=== PATIENT | female | born 1955 | race Caucasian/White ===

== ENCOUNTER → 2016-11-03 | Outpatient (CLI) | payer BC ==
[~2016-11-03] MED LIST: BUPR-83 PO; CHOL400C10; CYAN500T PO; FOLI1TAB7 PO; LUTE15CA; MULT-506 PO; PRED20TA PO; TRAM-10 PO
[2016-11-03 16:17] LABS: BASO % 0.3 %; BASO ABS # 0.03 K/uL (0-0.2); COMPLETE YES; EOS % 2.3 %; HEMATOCRIT 32.2 % (37-47); IG% 0.2 %; LYMPH % 11.9 %; LYMPH ABS # 1.32 K/uL (1.2-3.4); MEAN CELL VOLUME 85.6 fL (80-100); MEAN CORPUSCULAR HEMOGLOBIN 27.9 pg (25-34); MEAN CORPUSCULAR HGB CONC 32.6 g/dl (32-36); MEAN PLATELET VOLUME 9.2 fL (7.4-10.4); MONO % 6.8 %; NEUT % 78.5 %; PLATELET COUNT 481 K/uL (130-400); RED BLOOD COUNT 3.76 M/uL (4.2-5.4); WHITE BLOOD COUNT 11.12 K/uL (4.8-10.8)
[2016-11-03 17:07] LABS: BLOOD UREA NITROGEN 12 mg/dl (7-18); BUN/CREATININE RATIO 16.2 (10-20); CALCIUM 9.6 mg/dl (8.5-10.1); CARBON DIOXIDE 26 mmol/L (21-32); CHLORIDE 106 mmol/L (98-107); CREATININE 0.74 mg/dl (0.60-1.20); GLUCOSE 92 mg/dl (70-99); POTASSIUM 3.7 mmol/L (3.5-5.1); SODIUM 141 mmol/L (136-145)
== END | disposition home or self-care (01) ==
LOC: C.LAB 15:00
PROVIDERS: ATTEND Surgery
DX: C34.90 Malignant neoplasm of unspecified part of unspecified bronchus or lung (principal)

== ENCOUNTER → 2016-11-13 | Outpatient (CLI) | payer BC ==
[~2016-11-13] MED LIST changes: +OPTIRAY 320 IV PRN
--- NOTE | 2016-11-13 09:10 | DIAGNOSTIC IMAGING REPORT ---
CT OF THE CHEST WITH IV CONTRAST CLINICAL HISTORY: Pleural effusion. Bilateral lung masses. COMPARISON STUDY: Outside chest x-ray dated 10/30/2016 TECHNIQUE: Following the IV administration of 94 mL of Optiray-320, CT of the thorax was performed from the thoracic inlet to the lung bases. Images are reviewed in the axial, sagittal, and coronal planes. IV contrast was administered without complication. CT DOSE: 248.37 mGy.cm FINDINGS: Thyroid: Imaged portions of the thyroid gland are normal in appearance. Thoracic aorta: The thoracic aorta is normal in course and caliber, noting standard 3-vessel arch anatomy. No aneurysm or dissection is seen. Pulmonary vasculature: The pulmonary trunk is normal in caliber. There are no central filling defects identified to suggest pulmonary embolus. Note that this examination was not protocoled for the evaluation of pulmonary emboli. HEART: The heart is normal in size and configuration, without pericardial effusion. Lungs and pleural spaces: There are multiple low density bilateral pulmonary nodules. These number in excess of 20. The largest on the left is located within the left lower lobe measuring 34 mm. The largest on the right is a right lower lobe nodule measuring 12.6 cm. There is also a lobulated right upper lobe point nodule measuring 54 mm. There is a small right pleural effusion. Mediastinum: There are pathologically enlarged mediastinal lymph nodes including a 25 mm right paratracheal lymph node, and 31 mm subcarinal lymph node. There is also an enlarged right subclavicular lymph node. Irena: There is pathologic right hilar lymphadenopathy with encasement of the right pulmonary artery Axilla: Clear. Upper abdomen: Partially visualized upper abdominal viscera is within normal limits. Skeletal structures: There are no lytic or blastic osseous lesions. IMPRESSION: 1. Multiple bilateral low-density pulmonary masses including a 12.6 cm right lower lobe mass 2. Pathologic mediastinal and hilar lymphadenopathy, which is again low density 3. Right-sided pleural-based masses suspicious for pleural metastasis. 4. Small right pleural effusion 5. Enlarged right subclavicular lymph node 6. The findings should be presumed to represent metastatic disease until proven otherwise. The low density of the lesions and adenopathy is unusual and raises the possibility of a mucinous neoplasm 7. Biopsy is recommended. Electronically signed by: Shahbaz You M.D. 11/13/2016 9:08 AM Dictated Date/Time: 11/13/2016 8:54 AM
== END | disposition home or self-care (01) ==
LOC: C.CTS 08:28
PROVIDERS: ATTEND Surgery
DX: J90 Pleural effusion, not elsewhere classified (principal); R91.8 Other nonspecific abnormal finding of lung field; R91.1 Solitary pulmonary nodule; R59.1 Generalized enlarged lymph nodes

== ENCOUNTER → 2016-11-19 | Outpatient (CLI) | payer BC ==
[~2016-11-19] MED LIST changes: -OPTIRAY 320 IV PRN
--- NOTE | 2016-11-20 20:06 | DIAGNOSTIC IMAGING REPORT ---
PET/CT CLINICAL HISTORY: Pulmonary masses. Right pleural effusion. TECHNIQUE: A PET/CT was performed from the skull base through the upper thighs following intravenous injection of 10.77 mCi of F 18 FDG IV. The injection was performed at 11:57 AM on November 19, 2016 and imaging began at 1:37 PM on November 19, 2016. Unenhanced CT was performed for attenuation correction purposes and anatomic localization. COMPARISON STUDY: Chest CT November 13, 2016. FINDINGS: Head and neck: Visualized portions of the brain demonstrate an equivocal 2.8 cm mass within or adjacent to the left cerebellopontine angle. This is probably artifactual. A nonenlarged right level 2 node shown image 23 measures 7 mm in short axis diameter and has mild FDG uptake with an SUV max of 2.8. An enlarged right supraclavicular lymph node shown on image 45 measures 2.1 x 1.4 cm and has mild FDG uptake with an SUV max of 2.5. Chest: A large hypodense right lower lobe mass measures approximately 12.6 x 8.2 cm. This has mild FDG uptake with an SUV max of 4. There is a small right pleural effusion with numerous FDG avid right pleural nodules. A 6.1 cm hypodense lobulated right upper lobe mass has mild FDG uptake with an SUV max of 3. A right paratracheal lymph node shown on image 63 measures 2.6 x 2.1 cm and has mild FDG uptake with an SUV max of 2.7. A 3.7 x 2.8 cm subcarinal lymph node has minimal FDG uptake. There are innumerable nodules throughout both lungs, including a 3.4 cm left lower lobe nodule with minimal FDG uptake. Similar findings were shown on CT of November 13, 2016. Abdomen and Pelvis: No abnormal FDG uptake is identified within the abdomen or the pelvis. There is no abdominal or pelvic lymphadenopathy. There is no ascites. Musculoskeletal: No suspicious skeletal uptake is identified. Uptake adjacent to the right shoulder is likely degenerative. IMPRESSION: 1. Mild FDG uptake within the dominant right lower lobe mass, innumerable pulmonary masses/nodules and enlarged thoracic lymph nodes. The findings suggest a neoplastic process with extensive pleural, parenchymal and cynthia metastatic disease. Although the appearance is not typical for bronchogenic carcinoma, this is the diagnosis of exclusion. 2. Small right pleural effusion, likely malignant. 3. Equivocal 2.8 cm lesion within the left cerebellopontine angle. This is probably artifactual although a nonemergent MRI of the brain with and without contrast could be obtained. Electronically signed by: Martinez Beltran M.D. 11/20/2016 8:05 PM Dictated Date/Time: 11/19/2016 2:42 PM
== END | disposition home or self-care (01) ==
LOC: C.PET 10:39
PROVIDERS: ATTEND Surgery
DX: R91.1 Solitary pulmonary nodule (principal); R91.8 Other nonspecific abnormal finding of lung field; J90 Pleural effusion, not elsewhere classified; G93.9 Disorder of brain, unspecified

== ENCOUNTER → 2016-11-27 | Outpatient (CLI) | payer BC ==
[2016-11-27 12:16] LABS: PLATELET COUNT 502 K/uL (130-400)
[2016-11-27 12:25] LABS: PARTIAL THROMBOPLASTIN RATIO 1.2; PROTHROMBIN TIME (PATIENT) 11.2 SECONDS (9.0-12.0)
== END | disposition home or self-care (01) ==
LOC: C.LABBFT 10:21
PROVIDERS: ATTEND Surgery
DX: J90 Pleural effusion, not elsewhere classified (principal); R91.8 Other nonspecific abnormal finding of lung field

== ENCOUNTER 2016-12-02 08:25 | Day surgery (SDC) | payer BC ==
[2016-12-02] VITALS (9 sets, daily range): BP systolic 113–132; BP diastolic 35–66; PULSE 76–90; TEMP 36.7–37.5; O2SAT 92–94; Ht 158.8 cm; Wt 72.0 kg
[~2016-12-02] VITALS: Ht 158.8 cm; Wt 72.0 kg
[2016-12-02] MEDS ORDERED: LUTE15CA (09:02)
[2016-12-02] MEDS ORDERED: CYAN500T PO (09:02)
[2016-12-02] MEDS ORDERED: BUPR-83 PO (09:02)
[2016-12-02] MEDS ORDERED: FOLI1TAB7 PO (09:02)
[2016-12-02] MEDS ORDERED: MULT-506 PO (09:02)
[2016-12-02] MEDS ORDERED: CHOL400C10 (09:02)
[2016-12-02] MEDS ORDERED: ACETAMINOPHEN 500 MG TAB PO PRN (11:00)
--- NOTE | 2016-12-02 11:00 | Discharge Instructions ---
Discharge Instructions Procedure Procedure Date: December 02, 2016. Reason for visit: Multiple Lung Masses. Discharge Discharge Date: December 02, 2016. Discharge Diagnosis: Lung mass Instructions Activity Recommendations: 1 Day-May resume regular activity, 48 Hours of decreased exertion, 1 Day with no driving/machine use Return to School/Work: no limitations Recommended Home Diet: Resume Previous Diet Provider Instructions: CT lung biopsy CT guided needle biopsy Performed of [Right upper lung] lesion with [ 20 and 22 gauge needle. Allergies Uncoded Allergies: ERTHROMYCIN (Allergy, Mild, nausea vomiting, 12/02/16) Issa Magana Recommendations: Call your doctor if: * Temperature above 101 degrees * Pain not relieved by pain medicine ordered * There is increased drainage or redness from any incision * You have any unanswered questions or concerns. Your Doctors Instructions noted above were prepared by provider David Cha. Patient Signature Section: Patient Instructions Signature Page Lilibeth Florescarolinakyle Patient (or Guardian) Signature/Date: I have read and understand the instructions given to me by my caregivers. Caregiver/RN/Doctor Signature/Date: The above-named patient and/or guardian has received patient instructions on this date. + Original Patient Signature Page (only) stays with chart. Please make copy for patient.
--- NOTE | 2016-12-02 11:08 | DIAGNOSTIC IMAGING REPORT ---
CT guided lung biopsy GUIDANCE NEEDLE PLACEMENT CLINICAL HISTORY: lung node mass TECHNIQUE: CT-guided lung biopsy COMPARISON STUDY: PET/CT scan dated 11/19/2016 FINDINGS: Following description of procedure and informed consent, passes with 20 and 22-gauge cutting needles were made to the pleural-based mass in the right upper lung. Initial interpretation from pathology was mucin without significant cellularity. A core biopsy was not felt to have a significant chance of adding to the information obtained. There are no complications. There is no pneumothorax.: IMPRESSION: Biopsy of the right upper lobe mass x2. No complications. Patient was transferred to observation . No significant cellularity was obtained on the initial slides. Mucin material was obtained exclusively. Electronically signed by: David Cha M.D. 12/02/2016 11:07 AM Dictated Date/Time: 12/02/2016 11:03 AM
== END 2016-12-02 14:10 | disposition home or self-care (01) ==
LOC: C.ACU 08:25
PROVIDERS: ATTEND Surgery
DX: R91.1 Solitary pulmonary nodule (principal); R59.9 Enlarged lymph nodes, unspecified; E78.5 Hyperlipidemia, unspecified; E78.1 Pure hyperglyceridemia; F32.9 Major depressive disorder, single episode, unspecified; M19.90 Unspecified osteoarthritis, unspecified site; Z87.891 Personal history of nicotine dependence; Z82.49 Family history of ischemic heart disease and other diseases of the circulatory system

== ENCOUNTER → 2016-12-10 | Outpatient (CLI) | payer BC | END | disposition home or self-care (01) | LOC: C.CPL 16:09 | PROVIDERS: ATTEND Surgery | DX: R91.1 Solitary pulmonary nodule (principal); J90 Pleural effusion, not elsewhere classified; R94.31 Abnormal electrocardiogram [ECG] [EKG] ==

== ENCOUNTER 2016-12-11 11:01 | Day surgery (SDC) | payer BC ==
[~2016-12-11] VITALS: Ht 157.5 cm; Wt 72.7 kg
[~2016-12-11 11:01] MED LIST changes: -PRED20TA PO; -TRAM-10 PO
[2016-12-11] MEDS ORDERED: PRED20TA PO (11:20)
[2016-12-11 11:22] VITALS: BP 134/66; PULSE 87; TEMP 36.7; O2SAT 94; Ht 157.5 cm; Wt 72.7 kg
[2016-12-11] MEDS ORDERED: LACTATED RINGER'S 1000ML 1,000 ML IV SCH (12:30)
[2016-12-11] MEDS ORDERED: FENTANYL CITRATE INJ 50 MCG/1 ML 2 ML VIAL ONE ×2 (12:57→13:57)
[2016-12-11] MEDS ORDERED: MIDAZOLAM HCL 1 MG/ML 2ML VIAL ONE (12:57)
--- NOTE | 2016-12-11 13:07 | History & Physical Bridge Note ---
H&P Re-Evaluation Bridge Note: I have examined the patient, reviewed the History & Physical and in the interval since the performance of the History & Physical I have noted the following changes of clinical significance: No changes noted
[2016-12-11] MEDS ORDERED: KETOROLAC TROMETHAMINE 30 MG/ML VIAL IV. PRN (13:30)
[2016-12-11] MEDS ORDERED: ATROPINE SULFATE 0.1 MG/ML 5ML SYR IV PRN (13:30)
[2016-12-11] MEDS ORDERED: LABETALOL HCL IV 5 MG/ML 20ML IV PRN (13:30)
[2016-12-11] MEDS ORDERED: FENTANYL CITRATE INJ 50 MCG/1 ML 2 ML VIAL IV PRN (13:30)
[2016-12-11] MEDS ORDERED: ONDANSETRON INJ 2 MG/ML 2 ML VIAL IV PRN (13:30)
[2016-12-11] MEDS ORDERED: TRAM-10 PO (13:37)
--- NOTE | 2016-12-11 13:39 | Discharge Instructions ---
Discharge Instructions Date of Service Dec 11, 2016. Visit Reason for Visit: Lung Nodule, Pleural Effusion Discharge Discharge Diagnosis / Problem: Lung Nodule, Pleural Effusion Discharge Goals Goal(s): Learn about illness Activity Recommendations Activity Limitations: resume your previous activity (in 24 hours) Lifting Limitations: none 1. Do not drive if taking ultram. 2. Keep your scheduled appointment with Dr. Mcgovern on December 18, 2016 @ 9:45 Anesthesia . Post Anesthesia Instructions: If you have had General Anesthesia or IV Sedation: * Do not drive today. * Resume driving when surgeon permits. * Do not make important decisions or sign legal documents today. * Call surgeon for: 1. Temperature elevations greater than 101 degrees F. 2. Uncontrollable pain. 3. Excessive bleeding. 4. Persistent nausea and vomiting. 5. Medication intolerance (nausea, vomiting or rash). * For nausea and vomiting use only clear liquids such as: tea, soda, bouillon until nausea subsides, then gradually increase diet as tolerated. * If you have any concerns or questions, call your surgeon's office. If physician is unavailable and it is an emergency, call 911 or go to the nearest emergency room. . Diet Recommendations Recommended Home Diet: resume previous diet Pending Studies Studies pending at discharge: no Medical Emergencies . Who to Call and When: Medical Emergencies: If at any time you feel your situation is an emergency, please call 911 immediately. . Non-Emergent Contact Non-Emergency issues call your: Surgeon Call Non-Emergent contact if: you have a fever, your pain is not controlled, wound has increased drainage . . "Provider Documentation" section prepared by Mo Gunderson. .
[2016-12-11] MEDS ORDERED: DEXAMETHASONE SOD INJ 4 MG/ML VIAL ONE (14:08)
[2016-12-11] MEDS ORDERED: ROCURONIUM BROMID 50MG/5ML SYR ONE (14:08)
[2016-12-11] MEDS ORDERED: LARYING-O-JET KIT (LTA) ONE ×2 (14:08)
[2016-12-11] MEDS ORDERED: NEOSTIGMINE METHYLSULFATE 5 MG/5 ML SYR ONE (14:08)
[2016-12-11] MEDS ORDERED: PROPOFOL IV EMULSION 10 MG/ML 20 ML VIAL IV ONE (14:08)
[2016-12-11] MEDS ORDERED: ONDANSETRON INJ 2 MG/ML 2 ML VIAL ONE (14:08)
[2016-12-11] MEDS ORDERED: GLYCOPYRROLATE INJ 0.2 MG/ML VIAL ONE (14:08)
[2016-12-11] MEDS ORDERED: LIDOCAINE HCL 2% 2 ML VIAL (20MG/ML) ONE (14:08)
[2016-12-11] MEDS ORDERED: TRAMADOL HCL 50 MG TAB PO PRN (14:30)
[2016-12-11] MEDS ORDERED: MoRPHine SULFATE 2 MG/ML CARP IV PRN (14:30)
[2016-12-11] MEDS ORDERED: CEFAZOLIN SOD 1 GM VIAL ONE (14:40)
--- NOTE | 2016-12-11 14:55 | DIAGNOSTIC IMAGING REPORT ---
SINGLE VIEW CHEST CLINICAL HISTORY: Status post mediastinoscopy. FINDINGS: An AP, portable, upright chest radiograph is compared to study dated 10/30/2016 and correlated with chest CT dated 11/13/2016. The heart is top normal for projection and there is atherosclerotic calcification of the thoracic aorta. The there is a right pleural effusion with associated right basilar consolidation. Multifocal pulmonary nodules are again seen. A mass lesion in the right upper lobe measures at least 6 cm. A lesion in the left lower lung measures at least 4 cm. These were better characterized on the recent chest CT. No pneumothorax is seen. The skeletal structures are osteopenic. Degenerative change is noted throughout the thoracic spine. IMPRESSION: 1. No pneumothorax is identified post procedure. 2. Layering right pleural effusion with associated consolidation. 3. Multifocal pulmonary metastatic disease is again seen. This was better characterized on the recent chest CT. Electronically signed by: Bill Candelario M.D. 12/11/2016 2:53 PM Dictated Date/Time: 12/11/2016 2:51 PM
--- NOTE | 2016-12-11 15:24 | Anesthesiology Progress Note ---
Anesthesia Post Op Note Date & Time Dec 11, 2016 at 15:23 Vital Signs Pain Intensity: 0 Vital Signs Past 12 Hours Date Time Temp Pulse Resp B/P (MAP) Pulse Ox O2 Delivery O2 Flow Rate FiO2 12/11/16 15:10 87 16 124/48 95 Room Air 12/11/16 15:00 87 16 138/59 94 Room Air 12/11/16 14:50 97 16 148/63 97 Mask 10 12/11/16 14:43 36.6 96 16 134/88 96 Mask 10 12/11/16 11:22 36.7 87 22 134/66 (88) 94 Room Air Notes Mental Status: alert / awake / arousable, participated in evaluation Pt Amnestic to Procedure: Yes Nausea / Vomiting: adequately controlled Pain: adequately controlled Airway Patency, RR, SpO2: stable & adequate BP & HR: stable & adequate Hydration State: stable & adequate Anesthetic Complications: no major complications apparent Pt doing well.
[2016-12-11 15:38] VITALS: BP 123/60; PULSE 84; TEMP 36.7; O2SAT 95
[2016-12-11 16:05] VITALS: BP 126/63; PULSE 86; TEMP 36.3; O2SAT 96
[2016-12-11 16:40] VITALS: BP 128/60; PULSE 91; TEMP 36.3; O2SAT 96
--- NOTE | 2016-12-16 21:57 | OPERATIVE REPORT ---
DATE OF OPERATION: 12/11/2016 PREOPERATIVE DIAGNOSIS: Large bilateral lung masses with mediastinal adenopathy. 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 SURGEON: Dr. Mcgovern. PITCH FILLER: RAYMOND Abreu PROCEDURE: Video mediastinoscopy with biopsy. ANESTHESIA: General anesthesia endotracheal intubation. INDICATION FOR PROCEDURE AND FINDINGS: Lilibeth Davis is a 61-year-old female who was found to have some very large lung masses. She does have a history of cigarette smoking. She and I had a long discussion about this and I did set her up for a needle biopsy, however, this just showed a great deal of mucin and there was not really a pathologic diagnosis that can be made. On 12/11/2016 I took her to the operating room and did a video mediastinoscopy and the frozen section suggest a mucinous adenocarcinoma. She tolerated it well. DESCRIPTION OF PROCEDURE: The patient brought to the operating room, laid in supine position. General anesthesia was induced and endotracheal intubation was performed. Prepped and draped in the usual sterile fashion, and calling appropriate timeout and giving antibiotics, an incision was made 1 fingerbreadth above the sternal notch. Sharp and blunt dissection used to dissect down to the pretracheal plane which was developed. I bluntly placed my finger in and then I was able to palpate significant lymphadenopathy at the level 2 area. I biopsied a large amount of this and then went down to the level 4 area and biopsied this on the right side. I gave them a very large amount of tissue. Frozen section came back as being consistent with a mucinous adenocarcinoma. I did not biopsy anything else. I did place one small piece of Surgicel in to control some oozing. She tolerated it well. It should be noted that I was not very aggressive in biopsying anything else as I felt we had enough tissue for diagnosis. I attest to the content of the Intraoperative Record and any orders documented therein. Any exception s are noted below.
== END 2016-12-11 17:00 | disposition home or self-care (01) ==
LOC: C.ACU 11:01
PROVIDERS: ATTEND Surgery
DX: C80.1 Malignant (primary) neoplasm, unspecified (principal); C77.1 Secondary and unspecified malignant neoplasm of intrathoracic lymph nodes; R91.1 Solitary pulmonary nodule; J90 Pleural effusion, not elsewhere classified; E78.5 Hyperlipidemia, unspecified; E78.1 Pure hyperglyceridemia; F32.9 Major depressive disorder, single episode, unspecified; M19.90 Unspecified osteoarthritis, unspecified site; Z87.891 Personal history of nicotine dependence; Z79.899 Other long term (current) drug therapy

== ENCOUNTER → 2017-01-05 | Outpatient (CLI) | payer BC ==
[~2017-01-05] MED LIST changes: +GADAVIST IV PRN; +PRED20TA PO; +TRAM-10 PO
--- NOTE | 2017-01-05 15:07 | DIAGNOSTIC IMAGING REPORT ---
MRI OF THE BRAIN COMBO CLINICAL HISTORY: Lung cancer. COMPARISON STUDY: PET/CT dated 11/19/2016. TECHNIQUE: MRI of the brain was performed utilizing various T1 and T2-weighted sequences in the axial, sagittal, and coronal planes. Contrast-enhanced sequences were acquired following the administration of 6.5 cc of Gadavist. Examination is severely degraded by open MRI technique and motion artifact. FINDINGS: Brain parenchyma: There are age-related involutional changes noting mild patchy subcortical and periventricular microangiopathic disease. There is no hemorrhage or mass effect. There is no restricted diffusion to suggest acute ischemia. No enhancing mass lesion is identified on the postcontrast images. Hassan-white matter differentiation is preserved. No extra-axial fluid collection is seen. The cerebellar tonsils are normal in configuration. Ventricles, sulci, and cisterns: Prominent secondary to involutional change. Pituitary and sella: Unremarkable. Intracranial vasculature: Normal flow voids are maintained at the skull base. Orbits: The bony orbits are grossly intact. Orbital contents are normal in appearance. Sinuses and mastoids: Clear. Calvarium: Unremarkable. Cervical cord: Partially visualized cervical spinal cord is normal in morphology and signal intensity. IMPRESSION: 1. Significantly motion degraded examination. 2. No acute intracranial abnormality. 3. Specifically, there is no abnormality identified at the left cerebellopontine angle as clinically queried. The abnormality questioned by PET/CT was likely artifactual. Electronically signed by: Bill Candelario M.D. 01/05/2017 3:05 PM Dictated Date/Time: 01/05/2017 3:01 PM
--- NOTE | 2017-01-08 09:32 | CODING QUERY NO DIAGNOSIS ---
TREATMENT RENDERED WITHOUT A DIAGNOSIS To promote full compliance with coding requirements relating to patient care, physician participation is requested in all cases of medical record coder uncertainty. Please assist us with providing a diagnosis/symptom for the test(s) below: A diagnosis/symptom was not documented on your Order. A valid diagnosis/symptom is required to bill all insurances. Please remember that we are unable to code a diagnosis of rule out, probable, possible, questionable, or suspected. Tests that require a diagnosis: * MRI BRAIN COMBO DIAGNOSIS: Provider Signature: Date: Thank you Kylie [place] [employer] Information Management Once completed, please kindly fax back to [phone] For questions please call [phone]
== END | disposition home or self-care (01) ==
LOC: C.OPENMRI 13:25
PROVIDERS: ATTEND Internal Medicine Hematology & Oncology
DX: C34.92 Malignant neoplasm of unspecified part of left bronchus or lung (principal)

== ENCOUNTER → 2017-02-05 | Outpatient (CLI) | payer BC ==
[~2017-02-05] MED LIST changes: -GADAVIST IV PRN
--- NOTE | 2017-02-27 10:29 | CODING QUERY NO DIAGNOSIS ---
TREATMENT RENDERED WITHOUT A DIAGNOSIS To promote full compliance with coding requirements relating to patient care, physician participation is requested in all cases of operations advisor uncertainty. Please assist us with providing a diagnosis/symptom for the test(s) below: A diagnosis/symptom was not documented on your Order. A valid diagnosis/symptom is required to bill all insurances. Please remember that we are unable to code a diagnosis of rule out, probable, possible, questionable, or suspected. Tests that require a diagnosis: * NUTRITION & CULINARY SERVICES DIAGNOSIS: Provider Signature: Date: Thank you Kylie [place] [employer] Information Management Once completed, please kindly fax back to [phone] For questions please call [phone]
== END | disposition home or self-care (01) ==
LOC: C.FOODA 11:29
PROVIDERS: ATTEND Internal Medicine Hematology & Oncology
DX: C34.90 Malignant neoplasm of unspecified part of unspecified bronchus or lung (principal)

== ENCOUNTER → 2017-02-25 | Outpatient (CLI) | payer BC ==
[~2017-02-25] MED LIST changes: +OPTIRAY 320 IV PRN
--- NOTE | 2017-02-25 14:31 | DIAGNOSTIC IMAGING REPORT ---
(CHEST) THORAX WITH CT DOSE: HISTORY: Lung carcinoma LUNG CA TECHNIQUE: Multiaxial CT images of the chest were performed following the intravenous administration of contrast. A dose lowering technique was utilized adhering to the principles of ALARA. COMPARISON: 11/13/2016 FINDINGS: Opacification of the right hemithorax. Progressive low-density lesions occupying the bulk of the right hemithorax is likely combined with a small right effusion. Progressive mediastinal and hilar adenopathy. Compromise of the lumens of the arterial pulmonary vasculature involving the right upper and right lower lobe regions. Progressive parenchymal nodularity both in size as well as number of the left hemithorax metastatic findings. Pleural-based nodule transaxial image 17 has increased in volume by 50%. Multiple additional small nodular densities are present. Increase in volume of a pleural-based left lower lobe nodule transaxial images 13 to 3.6 cm Prior dimensions are 3.0 cm. This study is remarkable for rapid progression of the patient's diffuse metastatic disease. The osseous structures remain intact. IMPRESSION: 1. Interval opacification right hemithorax. 2. Progressive metastatic nodularity left hemithorax. 3. Progressive mediastinal and hilar adenopathy. The above report was generated using voice recognition software. It may contain grammatical, syntax or spelling errors. Electronically signed by: David Cha M.D. 02/25/2017 2:30 PM Dictated Date/Time: 02/25/2017 2:24 PM
--- NOTE | 2017-02-25 14:39 | DIAGNOSTIC IMAGING REPORT ---
ABD/PELVIS IV AND ORAL CONT CLINICAL HISTORY: 61 years-old Female presenting with LUNG CA, follow-up right lung mass, currently on chemotherapy. TECHNIQUE: Multidetector CT of the abdomen and pelvis was performed after the administration of oral and intravenous contrast. IV contrast: 119 mL of Optiray 320. A dose lowering technique was used consistent with the principles of ALARA (as low as reasonably achievable). COMPARISON: PET/CT from 11/19/2016. CT DOSE (mGy.cm): The estimated cumulative dose is 515.45 mGy.cm. FINDINGS: Desktop Support Specialist topogram: Complete opacification of the right hemithorax. Lung bases: Large right lung mass with no residual aerated right lung visible at the lung base. Multiple new and enlarging nodules and masses in the left lung, the largest measuring 3.8 cm, previously 3.4 cm. Liver: The right lower lobe mass may directly invade the right hemidiaphragm and involve the subcapsular liver parenchyma, although no discrete intraparenchymal lesion is noted within the liver. Patent hepatic vasculature. Biliary: No intrahepatic or extrahepatic biliary ductal dilatation. Normal gallbladder. Pancreas: Normal. Spleen: Normal. Adrenal glands: Normal. Kidneys and ureters: No nephrolithiasis. No hydronephrosis. Subcentimeter hypodensity posteriorly in the right lower pole, likely a cyst. Ureters normal. Bladder: Normal. Pelvic organs: Uterus and ovaries normal. Bowel: Limited diverticulosis of the descending and sigmoid colon. No bowel obstruction. Peritoneal cavity: No free fluid or intraperitoneal gas. Vasculature: Atherosclerosis of the normal caliber abdominal aorta. IVC patent. Lymph nodes: No enlarged lymph nodes in the abdomen or pelvis. Abdominal wall: Normal. Musculoskeletal: Degenerative changes of the spine. No destructive osseous lesion. IMPRESSION: 1. The right lung primary mass may directly invade the right hemidiaphragm and involve the subcapsular liver parenchyma, although no discrete intraparenchymal lesion is noted within the liver. No other evidence of metastatic disease in the abdomen or pelvis. 2. Enlarging left lung metastatic lesions. Primary right lung mass may also be enlarging. Please separately dictated CT of the chest. Electronically signed by: Candido Welsh M.D. 02/25/2017 2:38 PM Dictated Date/Time: 02/25/2017 2:29 PM
== END | disposition home or self-care (01) ==
LOC: C.CTS 13:23
PROVIDERS: ATTEND Internal Medicine Hematology & Oncology
DX: C34.31 Malignant neoplasm of lower lobe, right bronchus or lung (principal)

== ENCOUNTER → 2017-04-15 | Outpatient (CLI) | payer BC ==
--- NOTE | 2017-04-15 11:33 | DIAGNOSTIC IMAGING REPORT ---
(CHEST) THORAX WITH CLINICAL HISTORY: 61 years-old Female presenting with LUNG CARCINOMA. TECHNIQUE: Multidetector CT imaging of the chest was performed after the administration of intravenous contrast. IV contrast: 94 mL of Optiray 320. A dose lowering technique was used consistent with the principles of ALARA (as low as reasonably achievable). COMPARISON: 02/25/2017. CT DOSE (mGy.cm): The estimated cumulative dose is 843.43 mGycm. FINDINGS: Chronic Care Nurse topogram: Partial aeration of the right lung. On soft tissue windows, hypodense nodule in the left thyroid lobe, unchanged. Pathologically enlarged mediastinal lymphadenopathy. An index node in the prevascular region measures 9 mm in the short axis, previously 10 mm. A right paratracheal lymph node measures 11 mm in the short axis, previously 11 mm. Normal aorta. Stenosis of the right pulmonary artery branches as on prior exam. Vessels remain patent. Normal heart size. No pericardial effusion. Loculated right pleural effusion unchanged. Extensive nodular pleural thickening in the right hemithorax, which may invade the right anterior mediastinum.. Upper abdomen normal. On lung windows, innumerable pulmonary nodules bilaterally. An index nodule in the left apex measures 10 mm, previously 10 mm (series 4 image 50). A larger left lower lobe nodule measures 3.9 cm, previously 3.8 cm (series 4 image 160). Improved aeration of the right upper lung. Multiple large masses in the right lung with extensive consolidation similar to prior. Consolidation involves the right hilum. Complete obstruction of the bronchus intermedius and the more distal right upper lobe bronchus. Airways to the left lung remain patent. On bone windows, mild degenerative changes of the spine. No paraspinal soft tissue invasion is apparent. No destructive osseous lesion. IMPRESSION: 1. Persistent diffuse consolidation in the right lung, consistent with known primary lung carcinoma. Persistent innumerable metastatic pulmonary nodules, metastatic pleural disease, invasion of the mediastinum, and metastatic mediastinal lymphadenopathy. Invasion of the right hilum with resultant bronchial and arterial narrowing as on prior exam. The degree of disease extent is essentially unchanged from prior. 2. Slight improved aeration of the right upper lung. Electronically signed by: Candido Welsh M.D. 04/15/2017 11:32 AM Dictated Date/Time: 04/15/2017 11:21 AM
--- NOTE | 2017-04-15 13:10 | DIAGNOSTIC IMAGING REPORT ---
CT OF THE ABDOMEN AND PELVIS WITH CONTRAST CLINICAL HISTORY: Lung carcinoma. COMPARISON STUDY: PET/CT November 19, [address] of the abdomen and pelvis February 25, 2017. TECHNIQUE: Following IV administration of 94 mL of Optiray-320, axial images of the abdomen and pelvis were obtained from the lung bases to the proximal femurs. Images were reviewed in the axial, sagittal, and coronal planes. IV contrast was administered without complication. A dose lowering technique was utilized adhering to the principles of ALARA. Oral contrast was administered. FINDINGS: The chest will be reported separately. The large hypodense dense right lung mass is partially imaged on this exam and better depicted on the chest CT. Innumerable left lung metastases are again noted. These are better depicted on the chest CT as well. The liver, spleen, adrenal glands, kidneys and pancreas are unremarkable Global. There is an 8 mm right renal cyst. There is no biliary or pancreatic ductal dilatation. No enlarged abdominal or pelvic lymph nodes are present. There is no ascites. There is no evidence for a bowel obstruction. No hydronephrosis is present. No suspicious osseous lesions are identified. IMPRESSION: 1. No evidence of metastatic disease within the abdomen or pelvis. 2. Partially visualized large hypodense right lung mass and innumerable left lung metastases which are better depicted on the chest CT performed concurrently. Electronically signed by: Martinez Beltran M.D. 04/15/2017 1:09 PM Dictated Date/Time: 04/15/2017 1:03 PM
== END | disposition home or self-care (01) ==
LOC: C.CTS 10:36
PROVIDERS: ATTEND Internal Medicine Hematology & Oncology
DX: C34.31 Malignant neoplasm of lower lobe, right bronchus or lung (principal)

== ENCOUNTER → 2017-05-20 | Outpatient (CLI) | payer BC ==
--- NOTE | 2017-05-20 16:21 | DIAGNOSTIC IMAGING REPORT ---
CT SCAN OF THE CHEST, ABDOMEN, AND PELVIS WITH IV CONTRAST CLINICAL HISTORY: Lung cancer. COMPARISON STUDY: CT scan of the chest, abdomen, and pelvis dated 04/15/2017. Chest CT dated 11/13/2016. TECHNIQUE: Following the IV administration of 120 of Optiray 320, CT scan of the chest, abdomen, and pelvis was performed from the thoracic inlet to the proximal femora. Images are reviewed in the axial, sagittal, and coronal planes. IV contrast was administered without complication. Automated dose control exposure was utilized. A dose lowering technique was utilized adhering to the principles of ALARA. CT DOSE: 655.88 mGy.cm FINDINGS: CHEST: Thyroid: Imaged portions of the thyroid gland are normal in size and attenuation. There is a 1.9 cm low-attenuation nodule in the left thyroid lobe. Thoracic aorta: There is mild atherosclerotic calcification of the thoracic aorta, which is normal in caliber and demonstrates standard 3-vessel arch anatomy. No dissection is seen. Pulmonary vasculature: The pulmonary trunk is normal in caliber. There are no filling defects identified in the central pulmonary vessels to indicate pulmonary embolus. Note that this examination was not protocoled for evaluation of the pulmonary arteries. There is significant attenuation of the distal right pulmonary artery secondary to hilar adenopathy. The vessels remain patent. Heart: The heart is normal in size and configuration, and without pericardial effusion. Lungs and pleural spaces: There is no airspace consolidation typical for pneumonia. A small pleural effusion is seen on the right. There has been no significant change in the appearance of a large low-attenuation mass lesion which fills the right lower thorax. This measures at least 16 x 9 cm in transaxial diameter. There are too numerous to count (greater than 30) metastatic lesions seen throughout both lungs. This is overall similar appearance to the 04/15/2017 examination. A large lesion in the right upper lobe seen on image #92 measures at least 6 cm. A lesion in the left lower lobe seen on image #167 measures 3.9 x 2.8 cm. Pleural metastases are also similar to previous. Lymphangitic spread of tumor is suggested in the right upper lobe. Mediastinum: There is bulky confluent mediastinal lymphadenopathy. This has not significant changed from 04/15/2017. A right paratracheal cynthia lesion on image #55 measures 3.6 x 2.9 cm Confluent subcarinal adenopathy completely occludes the right mainstem bronchus. Irena: There is bulky/confluent right hilar adenopathy. This cannot the discretely measured. Mildly enlarged left hilar nodes identified and similar appearance to previous. Axillae: There is no axillary lymphadenopathy. Bony thorax: The skeletal structures are osteopenic. No lytic or blastic lesions are identified. Advanced degenerative change is seen throughout the thoracic spine. Advanced arthritic change is also seen in the right shoulder. ABDOMEN AND PELVIS: Liver: The contrast-enhanced liver is normal in size, contour, and attenuation. There is no intrahepatic or ductal dilatation. The hepatic veins and portal veins are patent. Gallbladder: Unremarkable. Spleen: Normal in size and attenuation. Pancreas: Unremarkable. Adrenal glands: Unremarkable. Kidneys: The contrast enhanced kidneys are normal in size and without hydronephrosis. The kidneys enhance symmetrically. Abdominal vasculature: The abdominal aorta is normal in course and caliber noting mild to moderate atherosclerotic calcification. Bowel: There is mild colonic diverticulosis without CT evidence of acute diverticulitis. Colonic fecal retention is observed. No bowel obstruction is seen. The appendix is normal as visualized. Peritoneum: There is no intraperitoneal free air or abdominal ascites. Lymphadenopathy: None. Pelvic viscera: The bladder, uterus, and adnexa are normal as visualized. Skeletal structures: The skeletal structures are osteopenic. There is mild lumbosacral spondylosis and scoliosis. No lytic or blastic lesions are seen. IMPRESSION: 1. There has been no significant change from 04/15/2017. 2. A large mass lesion filling the right lower thorax, too numerous to count pulmonary and pleural-based metastatic lesions, as well as bulky mediastinal and hilar adenopathy are similar to previous. 3. There is a small right pleural effusion. 4. There is no evidence of metastatic disease in the abdomen or pelvis. 5. There is mild colonic diverticulosis without CT evidence of acute diverticulitis. Electronically signed by: Bill Candelario M.D. 05/20/2017 4:19 PM Dictated Date/Time: 05/20/2017 4:02 PM
== END | disposition home or self-care (01) ==
LOC: C.CTS 15:29
PROVIDERS: ATTEND Internal Medicine Hematology & Oncology
DX: C34.31 Malignant neoplasm of lower lobe, right bronchus or lung (principal); R22.2 Localized swelling, mass and lump, trunk; J90 Pleural effusion, not elsewhere classified; K57.30 Diverticulosis of large intestine without perforation or abscess without bleeding

== ENCOUNTER 2017-07-29 09:08 | Inpatient (IN) | payer BC ==
[2017-07-29] VITALS (22 sets, daily range): BP systolic 81–123; BP diastolic 58–91; PULSE 96–122; TEMP 36.8; O2SAT 90–94; Ht 160 cm; Wt 66.6 kg
[~2017-07-29] VITALS: Ht 160 cm; Wt 66.6 kg
[~2017-07-29 09:08] MED LIST changes: -FOLI1TAB7 PO; +FOLI1TAB8 PO; -OPTIRAY 320 IV PRN; -TRAM-10 PO
[2017-07-29] MEDS ORDERED: MAGNESIUM SULFATE 1GM / D5W 1 GM BAG IV STA (09:13)
[2017-07-29] MEDS ORDERED: FUROSEMIDE 40 MG/4 ML VIAL IV STA (09:13)
[2017-07-29] MEDS ORDERED: FUROSEMIDE 40 MG/4 ML VIAL ONE (09:14)
[2017-07-29] MEDS ORDERED: NITROGLYCERIN/D5W 100 MCG/ML 500 ML IV STA (09:16)
[2017-07-29] MEDS ORDERED: METHYLPREDNISOLONE 125 MG VIAL ONE (09:19)
[2017-07-29] MEDS ORDERED: ALBUT/IPRATROP 3MG/0.5MG NEB 3 ML VIAL ONE (09:19)
[2017-07-29] MEDS ORDERED: ALBUTEROL 0.083% NEBU SOLN 3 ML VIAL INH ONE (09:19)
--- NOTE | 2017-07-29 09:27 | DIAGNOSTIC IMAGING REPORT ---
CHEST ONE VIEW PORTABLE CLINICAL HISTORY: Respiratory symptoms. Lung cancer. COMPARISON STUDY: Chest CT May 20, 2017. FINDINGS: There is no pneumothorax. Innumerable bilateral pulmonary nodules are again noted, including a 6.7 cm right upper lobe mass and a dominant right lower lobe mass which is better depicted on prior CT. A small right pleural effusion is noted. Cardiomediastinal silhouette is stable with stable mediastinal widening and right hilar enlargement due to lymphadenopathy. Right lower lung aeration has likely improved since exam May 20, 2017. Left lung metastases have likely progressed. IMPRESSION: 1. Innumerable bilateral pulmonary nodules consistent with extensive metastatic disease, including a large right lower lobe mass and dominant right upper lobe mass. Suspected interval progression of left lung metastases with interval improvement in right lower lung aeration. 2. Small right pleural effusion. Electronically signed by: Martinez Beltran M.D. 07/29/2017 9:25 AM Dictated Date/Time: 07/29/2017 9:21 AM
[2017-07-29] MEDS ORDERED: ALBUT/IPRATROP 3MG/0.5MG NEB 3 ML VIAL INH ONE (09:30)
[2017-07-29] MEDS ORDERED: RAPID SEQUENCE INDUCTION BAG ONE (09:32)
[2017-07-29] MEDS ORDERED: SUCCINYLCHOLINE CHLORIDE 20 MG/ML 10 ML VIAL IV STA (09:33)
--- NOTE | 2017-07-29 09:34 | EMERGENCY ROOM VISIT NOTE ---
History Report prepared by Perla: Alec Freeman Under the Supervision of: Dr. Leopoldo Crowell M.D. First contact with patient: 09:07 Stated Complaint: RESPIRATORY History of Present Illness The patient is a 62 year old female who presents to the Emergency Room with complaints of respiratory problems that began a couple of weeks ago, but worsened significantly today. She a current medical history of lung cancer and receives chemotherapy treatments every third . Over the past couple of weeks, she has been exhibiting flu-like symptoms that include chest congestion, a productive cough with white sputum, and some mild shortness of breath. The cold weather has been exacerbating her symptoms. However, this morning her respiratory symptoms worsened significantly. When EMS arrived, the patient was 98% on her normal oxygen. En route, she received a DuoNeb with Albuterol and 125 mg of Solu-Medrol. She denies any known cardiac history. She denies any fevers, chest pain, nausea, vomiting, diarrhea, weakness, or numbness. Source of History: patient Onset: A couple of weeks ago Position: other (Respiratory System) Symptom Intensity: severe Quality: other (Respiratory Symptoms) Timing: worsening Associated Symptoms: + cough, + SOB, No fevers, No chills, No chest pain, No nausea, No vomiting, No diarrhea, No weakness, No numbness Note: She is experiencing chest congestion. Review of Systems See HPI for pertinent positives & negatives. A total of 10 systems reviewed and were otherwise negative. Past Medical & Surgical Medical Problems: (1) Depression (2) Primary mucinous adenocarcinoma of lung Family History Patient reports no known family medical history. Social History Smoking Status: Former Smoker Smokeless Tobacco Use: No Drug Use: none Marital Status: Occupation Status: employed Current/Historical Medications Scheduled Bupropion Hcl (Wellbutrin Sr), 1 TAB PO BID Cyanocobalamin (Vitamin B-12), 500 MCG PO DAILY Doxycycline Monohydrate (Monodox), 100 MG PO BID Escitalopram Oxalate (Lexapro), 20 MG PO DAILY Folic Acid (Folic Acid), 1 TAB PO DAILY Multivitamin (Multivitamin), 1 TAB PO DAILY Scheduled PRN Benzonatate (Tessalon Perles), 1 CAP PO TID PRN for Cough Dexamethasone (Decadron), 1 MG PO BID PRN for prior to chemo Ondansetron Hcl (Zofran), 8 MG PO Q8 PRN for Nausea Prochlorperazine Maleate (Compazine), 10 MG PO Q6H PRN for Nausea Allergies Coded Allergies: Erythromycin (Verified Adverse Reaction, Unknown, NAUSEA/VOMITING, 07/29/17 ) Physical Exam Vital Signs Date Time Temp Pulse Resp B/P (MAP) Pulse Ox O2 Delivery O2 Flow Rate FiO2 07/29/17 10:45 105 12 116/77 90 07/29/17 10:44 105 116/77 90 Mechanical Ventilator 60 07/29/17 10:35 90 Mechanical Ventilator 15.0 60 07/29/17 10:30 107 129/76 91 Mechanical Ventilator 60 07/29/17 10:07 107 18 125/77 97 Mechanical Ventilator 07/29/17 09:45 60 07/29/17 09:38 100 07/29/17 09:31 122 26 137/111 94 CPAP 07/29/17 09:23 122 30 111/85 95 BiPAP 40 07/29/17 09:21 Nasal Cannula 07/29/17 09:20 122 34 129/114 97 BiPAP 07/29/17 09:20 122 37 94 BiPAP/CPAP 40 07/29/17 09:15 122 94 40 07/29/17 09:15 121 07/29/17 09:10 94 Nasal Cannula 15.0 07/29/17 09:10 94 Nasal Cannula 15.0 07/29/17 09:10 36.7 122 36 116/92 95 Nasal Cannula 15.0 Physical Exam GENERAL: Patient is a pale appearing well-nourished female in acute distress. HEAD: Normocephalic atraumatic EYES: Ocular movements intact pupils equal and react to light OROPHARYNX mucous membranes are moist no exudates present no erythema or edema present NECK: Supple no nuchal rigidity CHEST: Good equal expansion LUNGS: Rales throughout all lung sounds. CARDIAC: Normal S1 and S2 ABDOMEN: Soft nontender no guarding BACK: No CVA tenderness EXTREMITIES: No pain upon palpation normal muscle strength in all groups no clubbing cyanosis or edema NEURO: Patient is following commands and answering questions appropriately. Alert and oriented x3 Cranial Nerves 2-12 grossly intact Medical Decision & Procedures ER Provider Diagnostic Interpretation: Radiology results as stated below per my review and radiologist interpretation: CHEST ONE VIEW PORTABLE CLINICAL HISTORY: Respiratory symptoms. Lung cancer. COMPARISON STUDY: Chest CT May 20, 2017. FINDINGS: There is no pneumothorax. Innumerable bilateral pulmonary nodules are again noted, including a 6.7 cm right upper lobe mass and a dominant right lower lobe mass which is better depicted on prior CT. A small right pleural effusion is noted. Cardiomediastinal silhouette is stable with stable mediastinal widening and right hilar enlargement due to lymphadenopathy. Right lower lung aeration has likely improved since exam May 20, 2017. Left lung metastases have likely progressed. IMPRESSION: 1. Innumerable bilateral pulmonary nodules consistent with extensive metastatic disease, including a large right lower lobe mass and dominant right upper lobe mass. Suspected interval progression of left lung metastases with interval improvement in right lower lung aeration. 2. Small right pleural effusion. Electronically signed by: Martinez Beltran M.D. 07/29/2017 9:25 AM Dictated Date/Time: 07/29/2017 9:[address] ANGIOGRAM OF THE CHEST CLINICAL HISTORY: Hypoxia. Respiratory failure. COMPARISON STUDY: Chest x-ray dated 07/29/2017, CT scan dated 05/20/2017 TECHNIQUE: Following the IV administration of 93 mL of Optiray-320, CT angiogram of the thorax was performed from the thoracic inlet to the lung bases utilizing the pulmonary embolus protocol. Images are reviewed in the axial, sagittal, and coronal planes. IV contrast was administered without complication. MIP imaging was performed. A dose lowering technique was utilized adhering to the principles of ALARA. CT DOSE: 552.19 mGy.cm FINDINGS: There is increasing bulky mediastinal and hilar lymphadenopathy. There was no evidence of thoracic aortic dilatation. There were no pulmonary artery filling defects to indicate acute pulmonary embolism. There is a persistent small right pleural effusion. There is been interval increase in the size and number of the multiple bilateral pulmonary nodules indicative of progressive metastatic disease. There is a persistent 15 cm right lower lobe mass encasing the right middle and lower lobe pulmonary artery branches. The mediastinal mass/adenopathy obstructs the right mainstem bronchus. There is an endotracheal tube with its tip at the level of the zia. IMPRESSION: 1. The endotracheal tube is positioned at the level of the zia 2. Increasing bulky mediastinal and hilar lymphadenopathy 3. Interval increase in the size and number of the multiple bilateral pulmonary nodules 4. The right mainstem bronchus is obstructed by the mediastinal mass/adenopathy Electronically signed by: Shahbaz You M.D. 07/29/2017 10:13 AM Dictated Date/Time: 07/29/2017 10:06 AM CHEST ONE VIEW PORTABLE HISTORY: 62 years-old Female intubation acute respiratory failure COMPARISON: Chest radiograph 07/29/2017, chest CT 05/20/2017. TECHNIQUE: Supine AP view of the chest. FINDINGS: Cardiac silhouette is again mildly enlarged. Endotracheal tube has been placed which overlies the midline approximately 1.7 cm superior to the level the zia. There are innumerable bilateral pulmonary metastasis, largest of which measures up to 5.4 x 6.2 cm within the right upper lobe. Small right pleural effusion again seen. No pneumothorax. The bones appear grossly intact. Bulky adenopathy also again seen. IMPRESSION: 1. Status post placement of an endotracheal tube which overlies the midline approximately 1.7 cm superior to the zia. 2. Innumerable bilateral pulmonary metastasis redemonstrated with small right pleural effusion. The above report was generated using voice recognition software. It may contain grammatical, syntax or spelling errors. Electronically signed by: Aguila Crane M.D. 07/29/2017 9:57 AM Dictated Date/Time: 07/29/2017 9:53 AM Laboratory Results 07/29/17 09:19 Red Blood Count 3.13, Mean Corpuscular Volume 97.8, Mean Corpuscular Hemoglobin 31.0, Mean Corpuscular Hemoglobin Concent 31.7, Mean Platelet Volume 8.9 07/29/17 09:19 Test 07/29/17 09:19 07/29/17 09:28 07/29/17 09:30 07/29/17 09:32 White Blood Count 15.41 K/uL (4.8-10.8) Red Blood Count 3.13 M/uL (4.2-5.4) Hemoglobin 9.7 g/dL (12.0-16.0) Hematocrit 30.6 % (37-47) Mean Corpuscular Volume 97.8 fL (80-100) Mean Corpuscular Hemoglobin 31.0 pg (25-34) Mean Corpuscular Hemoglobin Concent 31.7 g/dl (32-36) Platelet Count 446 K/uL (130-400) Mean Platelet Volume 8.9 fL (7.4-10.4) RDW Standard Deviation 55.2 fL (36.4-46.3) RDW Coefficient of Variation 15.6 % (11.5-14.5) Neutrophils % (Manual) 69.6 % Lymphocytes % (Manual) 25.0 % Monocytes % (Manual) 2.7 % Eosinophils % (Manual) 2.7 % Neutrophils # (Manual) 10.73 K/uL (1.4-6.5) Total Absolute Neutrophils 10.73 K/uL (1.4-6.5) Lymphocytes # (Manual) 3.85 K/uL (1.2-3.4) Total Absolute Lymphocytes 3.85 K/uL (1.2-3.4) Monocytes # (Manual) 0.42 K/uL (0.11-0.59) Eosinophils # (Manual) 0.42 K/uL (0-0.5) Anisocytosis PRESENT Prothrombin Time 12.0 SECONDS (9.0-12.0) Prothromb Time International Ratio 1.1 (0.9-1.1) Activated Partial Thromboplast Time 27.5 SECONDS (21.0-31.0) Partial Thromboplastin Ratio 1.1 Estimated GFR () 45.0 Estimated GFR (Non- 38.8 BUN/Creatinine Ratio 10.9 (10-20) Calcium Level 8.9 mg/dl (8.5-10.1) Magnesium Level 1.8 mg/dl (1.8-2.4) Total Bilirubin 0.3 mg/dl (0.2-1) Direct Bilirubin < 0.1 mg/dl (0-0.2) Aspartate Amino Transf (AST/SGOT) 24 U/L (15-37) Alanine Aminotransferase (ALT/SGPT) 30 U/L (12-78) Alkaline Phosphatase 90 U/L (45-117) Total Creatine Kinase 85 U/L (26-192) Creatine Kinase MB 3.7 ng/ml (0.5-3.6) Creatine Kinase MB Ratio 4.4 (0-3.0) Total Protein 7.6 gm/dl (6.4-8.2) Albumin 2.8 gm/dl (3.4-5.0) Lipase 91 U/L (73-393) Beta-Hydroxybutyric Acid 1.48 mg/dL (0.2-2.81) Venous Blood pH 7.17 (7.36-7.41) Venous Blood Partial Pressure CO2 57 mmHg (38.0-50.0) Venous Blood Partial Pressure O2 41 mmHg Venous Blood HCO3 20 mmol/L Venous Blood Oxygen Saturation 62.1 % Venous Blood Base Excess -8.2 mEq/L Bedside Hemoglobin 9.9 g/dl (12.0-16.0) Bedside Hematocrit 29 % (37-47) Bedside Sodium 139 mEq/L (135-144) Bedside Potassium 3.9 mEq/L (3.3-5.0) Bedside Chloride 100 mEq/L (101-112) Bedside Total CO2 22 mEq/l (24-31) Anion Gap 22.0 mmol/L (16-25) Bedside Blood Urea Nitrogen 17 mg/dl (7-18) Bedside Creatinine 1.2 mg/dl (0.6-1.3) Bedside Glucose (other) 353 mg/dl (70-99) Bedside Ionized Calcium (Lynsey) 1.19 mmol/l (1.12-1.32) Bedside Troponin I 0.310 ng/ml (0-0.045) Test 07/29/17 09:34 07/29/17 10:09 Bedside Lactic Acid Venous 8.18 mmol/L (0.90-1.70) Influenza Type A Antigen Neg for Influ A (NEG) Influenza Type B Antigen Neg for Influ B (NEG) Labs reviewed by ED physician. Medications Administered Medications (Trade) Dose Ordered Sig/Ankit Route Start Time Stop Time Status Last Admin Dose Admin Furosemide (Lasix Inj) 40 mg NOW STAT IV 07/29/17 09:13 07/29/17 09:14 DC 07/29/17 09:18 40 MG Magnesium Sulfate (Magnesium Sulfate) 1 gm NOW STAT IV 07/29/17 09:13 07/29/17 09:14 DC 07/29/17 09:18 1 GM Nitroglycerin/ Dextrose 500 ml @ 0 mls/hr Q0M STAT IV 07/29/17 09:16 07/29/17 09:17 DC 07/29/17 09:24 3 MLS/HR Albuterol/ Ipratropium (Duoneb) 12 ml ONE ONCE INH 07/29/17 09:30 07/29/17 09:31 DC 07/29/17 09:30 12 ML Miscellaneous (Rapid Sequence Induction Bag) 1 ea STK-MED ONCE N/A 07/29/17 09:32 07/29/17 09:33 DC 07/29/17 09:37 1 EA Succinylcholine Chloride (Quelicin Inj) 150 mg NOW STAT IV 07/29/17 09:33 07/29/17 09:34 DC 07/29/17 09:44 150 MG Etomidate (Amidate Inj) 20 mg NOW ONCE IV 07/29/17 09:45 07/29/17 09:46 DC 07/29/17 09:44 20 MG Propofol (Diprivan Iv Emulsion 100ml Vial) 1 dose STK-MED ONCE IV 07/29/17 09:35 07/29/17 09:36 DC 07/29/17 09:43 1 DOSE Vecuronium Winterset (Vecuronium Winterset Inj) 10 mg NOW STAT IV 07/29/17 09:40 07/29/17 09:41 DC 07/29/17 09:46 10 MG Cefepime HCl 2000 mg/Dextrose 122 ml @ 200 mls/hr NOW STAT IV 07/29/17 09:42 07/29/17 10:18 DC 07/29/17 10:23 200 MLS/HR Levofloxacin (Levaquin / D5W) 750 mg NOW STAT IV 07/29/17 09:42 07/29/17 09:44 DC 07/29/17 10:25 750 MG Vancomycin HCl (Vancomycin 1gm/ 270ml Nss) 1 gm NOW STAT IV 07/29/17 09:42 07/29/17 09:44 DC 07/29/17 10:32 1 GM Sodium Chloride 1,000 ml @ 999 mls/hr Q1H1M STAT IV 07/29/17 10:06 07/29/17 11:06 DC 07/29/17 10:23 999 MLS/HR Procedure Endotracheal Intubation Indication: Acute respiratory distress. The patient was on 100% oxygen via NRB prior to the procedure. Suction, airway equipment, RSI drugs, respiratory equipment, and appropriate personnel were prepared prior to the initiation of the procedure. A time out was taken. Induction was performed with Succinylcholine and Etomidate. After observing the clinical benefit of the medications, the airway was easily visualized utilizing a GlideScope. A 7.5 size ETT tube was placed atraumatically to 22 cm at the lips using standard technique. The cuff inflated without signs of malfunction. There were bilateral breath sounds, positive colormetric change, no gastric sounds, a good capnography waveform, and post procedure pulse oximetry was 100% . Post intubation sedation and paralysis was administered using Vecuronium and Propofol. There were no complications. ECG Indication: SOB/dyspnea Rate (beats per minute): 122 Rhythm: sinus tachycardia Findings: no acute ischemic change, no ectopy, other (old septal infarct) Comparison ECG Date: 10 Dec 2016 Change: Findings are new ED Course 0907: Past medical records reviewed. The patient was evaluated in room A1. A complete history and physical examination was performed. 0913: Ordered Magnesium Sulfate 1 gm IV, Lasix Inj 40 mg IV 0916: Ordered Nitroglycerin/Dextrose 500 ml @ 0 mls/hr IV 0930: Ordered DuoNeb 12 ml INH 0935: Ordered Quelicin Inj 150 mg IV, Propofol 1 dose IV. I spoke with Dr. Kevin of the [place] [facility] at this time. We discussed the patient's case. He will evaluate the patient in the [facility]: I performed an intubation procedure at this time. Please see the procedure note for more information. 0940: Ordered Vecuronium [place] 10 mg IV 0942: Ordered Vancomycin HCl 1 gm IV, Levofloxacin 750 mg IV, Cefepime HCL 2000 mg/Dextrose 122 ml @ 200 mls/hr IV 0945: Ordered Amidate Inj 20 mg IV, Propofol 1 dose IV 1006: Ordered Sodium Chloride 1000 ml @ 999 mls/hr IV 1020: I discussed results and treatment plan with the patient's family. They verbalize agreement and understanding. I spoke with [facility] The patient will be evaluated for further management. Medical Decision Differential diagnosis: Etiologies such as infections, reactive airway disease, pneumonia, pneumothorax , COPD, CHF, cardiac ischemia, pulmonary embolism, musculoskeletal, gastrointestinal, as well as others were entertained. This is a 62-year-old female who presents emergency department complaining of hypoxia and respiratory failure. The patient was placed on BiPAP originally however she did not do well. She was also given Solu-Medrol an hour-long breathing treatment as well as Lasix and originally placed on a nitro drip. The patient continued to tire and she was not able to maintain her saturations. Because of this the patient was then intubated as above. I discussed this with both the patient as well as her prior to this procedure. She was then sent for a CAT scan of the chest and started on antibiotics after being pancultured. The case was discussed with the hospitalist service as well as the salesperson men[employer] furnishings. was in agreement with the treatment plan. Medication Reconcilliation Current Medication List: was personally reviewed by me Blood Pressure Screening Patient's blood pressure: Normal blood pressure Blood pressure disposition: Did not require urgent referral Consults Time Called: [phone] Consulting Physician: Dr. Kevin - [facility] Returned Call: [phone] We discussed the patient's case. He will evaluate the patient in the [facility] Additional Consults: Time Called: 101 Consulted Physician: G[facility]ella LOUIS [facility] Returned Call: [phone] Additional Comments: I discussed the patient's case with her, she has agreed to evaluate the patient for further management and care. Impression Primary Impression: Respiratory failure Critical Care I have personally spent greater than 90 minutes of critical care time in the direct management of this patient. This includes bedside care, interpretation of diagnostic studies, and testing, discussion with consultants, patient, and family members, and other required patient management activities. This 90 minutes is in excess of all separately billable procedures. Scribe Attestation The scribe's documentation has been prepared under my direction and personally reviewed by me in its entirety. I confirm that the note above accurately reflects all work, treatment, procedures, and medical decision making performed by me. Departure Information Dispostion Being Evaluated By Hospitalist Referrals Ariane Francis D.O. (PCP) Problem Qualifiers Primary Impression: Respiratory failure Chronicity: acute Respiratory failure complication: hypoxia Qualified Codes : J96.01 - Acute respiratory failure with hypoxia
[2017-07-29] MEDS ORDERED: PROPOFOL IV EMULSION 10 MG/ML 100 ML VIAL IV ONE (09:35)
[2017-07-29 09:40] LABS: HEMATOCRIT 30.6 % (37-47); HEMOGLOBIN 9.7 g/dL (12.0-16.0); MEAN CELL VOLUME 97.8 fL (80-100); MEAN CORPUSCULAR HGB CONC 31.7 g/dl (32-36); MEAN PLATELET VOLUME 8.9 fL (7.4-10.4); PLATELET COUNT 446 K/uL (130-400); RED CELL DISTRIBUTION WIDTH CV 15.6 % (11.5-14.5); RED CELL DISTRIBUTION WIDTH SD 55.2 fL (36.4-46.3); WHITE BLOOD COUNT 15.41 K/uL (4.8-10.8)
[2017-07-29] MEDS ORDERED: VECURONIUM BROMIDE 10 MG VIAL IV STA (09:40)
[2017-07-29] MEDS ORDERED: CEFEPIME IV 2,000 MG in DEXTROSE 5% 100ML 100 ML IV STA (09:42)
[2017-07-29] MEDS ORDERED: VANCOMYCIN 1GM/270ML NSS IV STA (09:42)
[2017-07-29] MEDS ORDERED: LEVAQUIN 750MG / 150ML D5W IV STA (09:42)
[2017-07-29] MEDS ORDERED: PROPOFOL IV EMULSION 10 MG/ML 100 ML VIAL IV PRN (09:45)
[2017-07-29] MEDS ORDERED: OPTIRAY 320 IV PRN (09:45)
[2017-07-29] MEDS ORDERED: ETOMIDATE 2 MG/ML 20 ML VIAL IV ONE (09:45)
[2017-07-29 09:49] LABS: INR 1.1 (0.9-1.1); PTT PATIENT 27.5 SECONDS (21.0-31.0)
--- NOTE | 2017-07-29 09:58 | DIAGNOSTIC IMAGING REPORT ---
CHEST ONE VIEW PORTABLE HISTORY: 62 years-old Female intubation acute respiratory failure COMPARISON: Chest radiograph 07/29/2017, chest CT 05/20/2017. TECHNIQUE: Supine AP view of the chest. FINDINGS: Cardiac silhouette is again mildly enlarged. Endotracheal tube has been placed which overlies the midline approximately 1.7 cm superior to the level the zia. There are innumerable bilateral pulmonary metastasis, largest of which measures up to 5.4 x 6.2 cm within the right upper lobe. Small right pleural effusion again seen. No pneumothorax. The bones appear grossly intact. Bulky adenopathy also again seen. IMPRESSION: 1. Status post placement of an endotracheal tube which overlies the midline approximately 1.7 cm superior to the zia. 2. Innumerable bilateral pulmonary metastasis redemonstrated with small right pleural effusion. The above report was generated using voice recognition software. It may contain grammatical, syntax or spelling errors. Electronically signed by: Aguila Crane M.D. 07/29/2017 9:57 AM Dictated Date/Time: 07/29/2017 9:53 AM
[2017-07-29 10:02] LABS: ALBUMIN 2.8 gm/dl (3.4-5.0); ALT/SGPT 30 U/L (12-78); AST/SGOT 24 U/L (15-37); BLOOD UREA NITROGEN 16 mg/dl (7-18); CALCIUM 8.9 mg/dl (8.5-10.1); CARBON DIOXIDE 22 mmol/L (21-32); CREATININE 1.44 mg/dl (0.60-1.20); GLUCOSE 331 mg/dl (70-99); LIPASE 91 U/L (73-393); POTASSIUM 3.7 mmol/L (3.5-5.1); SODIUM 134 mmol/L (136-145)
[2017-07-29 10:05] LABS: ISTAT CREATININE 1.2 mg/dl (0.6-1.3); ISTAT IONIZED CALCIUM 1.19 mmol/l (1.12-1.32); ISTAT POTASSIUM 3.9 mEq/L (3.3-5.0)
[2017-07-29] MEDS ORDERED: SODIUM CHLORIDE 0.9% 1000ML 1,000 ML IV STA (10:06)
[2017-07-29 10:09] LABS: ALKALINE PHOSPHATASE 90 U/L (45-117); CKMB 3.7 ng/ml (0.5-3.6); TOTAL PROTEIN 7.6 gm/dl (6.4-8.2)
--- NOTE | 2017-07-29 10:14 | DIAGNOSTIC IMAGING REPORT ---
CT ANGIOGRAM OF THE CHEST CLINICAL HISTORY: Hypoxia. Respiratory failure. COMPARISON STUDY: Chest x-ray dated 07/29/2017, CT scan dated 05/20/2017 TECHNIQUE: Following the IV administration of 93 mL of Optiray-320, CT angiogram of the thorax was performed from the thoracic inlet to the lung bases utilizing the pulmonary embolus protocol. Images are reviewed in the axial, sagittal, and coronal planes. IV contrast was administered without complication. MIP imaging was performed. A dose lowering technique was utilized adhering to the principles of ALARA. CT DOSE: 552.19 mGy.cm FINDINGS: There is increasing bulky mediastinal and hilar lymphadenopathy. There was no evidence of thoracic aortic dilatation. There were no pulmonary artery filling defects to indicate acute pulmonary embolism. There is a persistent small right pleural effusion. There is been interval increase in the size and number of the multiple bilateral pulmonary nodules indicative of progressive metastatic disease. There is a persistent 15 cm right lower lobe mass encasing the right middle and lower lobe pulmonary artery branches. The mediastinal mass/adenopathy obstructs the right mainstem bronchus. There is an endotracheal tube with its tip at the level of the zia. IMPRESSION: 1. The endotracheal tube is positioned at the level of the zia 2. Increasing bulky mediastinal and hilar lymphadenopathy 3. Interval increase in the size and number of the multiple bilateral pulmonary nodules 4. The right mainstem bronchus is obstructed by the mediastinal mass/adenopathy Electronically signed by: Shahbaz You M.D. 07/29/2017 10:13 AM Dictated Date/Time: 07/29/2017 10:06 AM
[2017-07-29] MEDS ORDERED: DOXY100C76 PO (10:19)
[2017-07-29] MEDS ORDERED: ESCI1TAB10 PO (10:19)
[2017-07-29] MEDS ORDERED: ENOXAPARIN 40 MG/0.4 ML SYR SQ SCH (10:45)
[2017-07-29] MEDS ORDERED: ICU PROTOCOL FOR HYPERGLYCEMIA PRN ×2 (10:45→14:15)
[2017-07-29 11:00] LABS: INFLUENZA B ANTIGEN Neg for Influ B (NEG)
[2017-07-29] MEDS ORDERED: ONDA8TAB6 PO (11:10)
[2017-07-29] MEDS ORDERED: PROC1TAB5 PO (11:10)
[2017-07-29] MEDS ORDERED: BENZ100C84 PO (11:10)
[2017-07-29] MEDS ORDERED: DXM/4 PO (11:10)
[2017-07-29] MEDS ORDERED: BUPR200T2 PO (11:10)
[2017-07-29] MEDS ORDERED: FLV400 PO (11:10)
--- NOTE | 2017-07-29 12:04 | History and Physical ---
History & Physical Date & Time of Service: Jul 29, 2017 ~ 10:30 Chief Complaint: Shortness of Breath Primary Care Physician: Ariane Francis D.O. History of Present Illness 62 year old female who presents to the ED with shortness of breath. Patient was in severe respiratory distress upon arriving to the ED and required urgent intubation. History is unobtainable from the patient. Some history is obtained from medical record review and family who is at the bedside. Patient recently has been treated twice for a URI. Most recently she was placed on Doxycycline on 07/23. Per , respiratory distress came on suddenly this morning. Patient was brought to the ED for further evaluation. She required intubation shortly after arrival. She was given IV Lasix, IV Mg+, IV Vanco, IV Levaquin, and IV Cefepime. 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 Family History FH: breast cancer SISTER FH: pancreatic cancer FATHER Social History Smoking Status: Former Smoker Alcohol Use: occasionally Immunizations History of Influenza Vaccine: Yes Influenza Vaccine Date: Apr 16, 2017 History of Tetanus Vaccine?: Yes Tetanus Immunization Date: Sep 13, 2009 Allergies Coded Allergies: Erythromycin (Verified Adverse Reaction, Unknown, NAUSEA/VOMITING, 07/29/17 ) Home Medications Scheduled Bupropion Hcl (Wellbutrin Sr), 1 TAB PO BID Cyanocobalamin (Vitamin B-12), 500 MCG PO DAILY Doxycycline Monohydrate (Monodox), 100 MG PO BID Escitalopram Oxalate (Lexapro), 20 MG PO DAILY Folic Acid (Folic Acid), 1 TAB PO DAILY Multivitamin (Multivitamin), 1 TAB PO DAILY Scheduled PRN Benzonatate (Tessalon Perles), 1 CAP PO TID PRN for Cough Dexamethasone (Decadron), 1 MG PO BID PRN for prior to chemo Ondansetron Hcl (Zofran), 8 MG PO Q8 PRN for Nausea Prochlorperazine Maleate (Compazine), 10 MG PO Q6H PRN for Nausea Review of Systems ROS per HPI, all other systems reviewed and negative Physical Exam Vital Signs Date Time Temp Pulse Resp B/P (MAP) Pulse Ox O2 Delivery O2 Flow Rate FiO2 07/29/17 10:53 70 07/29/17 10:44 105 116/77 90 Mechanical Ventilator 60 07/29/17 10:35 90 Mechanical Ventilator 15.0 60 07/29/17 10:30 107 129/76 91 Mechanical Ventilator 60 07/29/17 10:07 107 18 125/77 97 Mechanical Ventilator 07/29/17 09:45 60 07/29/17 09:38 100 07/29/17 09:31 122 26 137/111 94 CPAP 07/29/17 09:23 122 30 111/85 95 BiPAP 40 07/29/17 09:21 Nasal Cannula 07/29/17 09:20 122 34 129/114 97 BiPAP 07/29/17 09:20 122 37 94 BiPAP/CPAP 40 07/29/17 09:15 122 94 40 07/29/17 09:15 121 07/29/17 09:10 94 Nasal Cannula 15.0 07/29/17 09:10 94 Nasal Cannula 15.0 07/29/17 09:10 36.7 122 36 116/92 95 Nasal Cannula 15.0 General Appearance: WD/WN, + pertinent finding (intubated, sedated) Head: normocephalic, atraumatic Eyes: normal inspection, EOMI, sclerae normal ENT: + pertinent finding (ET tube in place) Neck: supple, no JVD, trachea midline Respiratory/Chest: + pertinent finding (coarse breath sounds anteriorly and left lung parks posterioly; absent / diminished breath sounds on the right) Cardiovascular: no edema, normal peripheral pulses, + tachycardia (regular rhythm) Abdomen/GI: normal bowel sounds, non tender, soft, no organomegaly Extremities/Musculoskelatal: normal inspection, no calf tenderness, normal capillary refill Neurologic/Psych: + pertinent finding (sedated) Skin: warm/dry, + mottled (anterior chest wall) Diagnostics Laboratory Results Results Past 24 Hours Test 07/29/17 09:19 07/29/17 09:28 07/29/17 09:30 07/29/17 09:32 Range/Units White Blood Count 15.41 4.8-10.8 K/uL Red Blood Count 3.13 4.2-5.4 M/uL Hemoglobin 9.7 12.0-16.0 g/dL Hematocrit 30.6 37-47 % Mean Corpuscular Volume 97.8 80-100 fL Mean Corpuscular Hemoglobin 31.0 25-34 pg Mean Corpuscular Hemoglobin Concent 31.7 32-36 g/dl Platelet Count 446 130-400 K/uL Mean Platelet Volume 8.9 7.4-10.4 fL RDW Standard Deviation 55.2 36.4-46.3 fL RDW Coefficient of Variation 15.6 11.5-14.5 % Neutrophils % (Manual) 69.6 % Lymphocytes % (Manual) 25.0 % Monocytes % (Manual) 2.7 % Eosinophils % (Manual) 2.7 % Neutrophils # (Manual) 10.73 1.4-6.5 K/uL Total Absolute Neutrophils 10.73 1.4-6.5 K/uL Lymphocytes # (Manual) 3.85 1.2-3.4 K/uL Total Absolute Lymphocytes 3.85 1.2-3.4 K/uL Monocytes # (Manual) 0.42 0.11-0.59 K/uL Eosinophils # (Manual) 0.42 0-0.5 K/uL Anisocytosis PRESENT Prothrombin Time 12.0 9.0-12.0 SECONDS Prothromb Time International Ratio 1.1 0.9-1.1 Activated Partial Thromboplast Time 27.5 21.0-31.0 SECONDS Partial Thromboplastin Ratio 1.1 Sodium Level 134 136-145 mmol/L Potassium Level 3.7 3.5-5.1 mmol/L Chloride Level 100 98-107 mmol/L Carbon Dioxide Level 22 21-32 mmol/L Anion Gap 12.0 22.0 16-25 mmol/L Blood Urea Nitrogen 16 7-18 mg/dl Creatinine 1.44 0.60-1.20 mg/dl Estimated GFR () 45.0 Estimated GFR (Non- 38.8 BUN/Creatinine Ratio 10.9 10-20 Random Glucose 331 70-99 mg/dl Calcium Level 8.9 8.5-10.1 mg/dl Magnesium Level 1.8 1.8-2.4 mg/dl Total Bilirubin 0.3 0.2-1 mg/dl Direct Bilirubin < 0.1 0-0.2 mg/dl Aspartate Amino Transf (AST/SGOT) 24 15-37 U/L Alanine Aminotransferase (ALT/SGPT) 30 12-78 U/L Alkaline Phosphatase 90 45-117 U/L Total Creatine Kinase 85 26-192 U/L Creatine Kinase MB 3.7 0.5-3.6 ng/ml Creatine Kinase MB Ratio 4.4 0-3.0 Total Protein 7.6 6.4-8.2 gm/dl Albumin 2.8 3.4-5.0 gm/dl Lipase 91 73-393 U/L Beta-Hydroxybutyric Acid 1.48 0.2-2.81 mg/dL Venous Blood pH 7.17 7.36-7.41 Venous Blood Partial Pressure CO2 57 38.0-50.0 mmHg Venous Blood Partial Pressure O2 41 mmHg Venous Blood HCO3 20 mmol/L Venous Blood Oxygen Saturation 62.1 % Venous Blood Base Excess -8.2 mEq/L Bedside Hemoglobin 9.9 12.0-16.0 g/dl Bedside Hematocrit 29 37-47 % Bedside Sodium 139 135-144 mEq/L Bedside Potassium 3.9 3.3-5.0 mEq/L Bedside Chloride 100 101-112 mEq/L Bedside Total CO2 22 24-31 mEq/l Bedside Blood Urea Nitrogen 17 7-18 mg/dl Bedside Creatinine 1.2 0.6-1.3 mg/dl Bedside Glucose (other) 353 70-99 mg/dl Bedside Ionized Calcium (Lynsey) 1.19 1.12-1.32 mmol/l Bedside Troponin I 0.310 0-0.045 ng/ml Test 07/29/17 09:34 07/29/17 10:09 07/29/17 11:00 Range/Units Bedside Lactic Acid Venous 8.18 0.90-1.70 mmol/L Influenza Type A Antigen Neg for Influ A NEG Influenza Type B Antigen Neg for Influ B NEG Microbiology Results 07/29/17 Blood Culture, Received Pending 07/29/17 Blood Culture, Received Pending Diagnostic Radiology CXR IMPRESSION: 1. Innumerable bilateral pulmonary nodules consistent with extensive metastatic disease, including a large right lower lobe mass and dominant right upper lobe mass. Suspected interval progression of left lung metastases with interval improvement in right lower lung aeration. 2. Small right pleural effusion. CTA CHEST IMPRESSION: 1. The endotracheal tube is positioned at the level of the zia 2. Increasing bulky mediastinal and hilar lymphadenopathy 3. Interval increase in the size and number of the multiple bilateral pulmonary nodules 4. The right mainstem bronchus is obstructed by the mediastinal mass/adenopathy Impression Assessment and Plan ACUTE RESPIRATORY FAILURE - admit to ICU - patient presenting with severe respiratory distress requiring urgent intubation in the ED - CT showing obstruction of right mainstem bronchus due to mediastinal mass/ adenopathy - labs show leukocytosis, mild anemia, lactic acidosis, JUAN, and hyperglycemia - modi cultures; empiric antibiotics - further management per ICU; case discussed with Dr. Kevin ELEVATED TROPONIN - likely demand ischemia from acute illness - continue to cycle cardiac enzymes - consider echo JUAN - prerenal due to acute illness - IVF, follow renal functions, avoid nephrotoxic agents when able HX MUCINOUS ADENOCARCINOMA OF LUNG - follows with Dr. Mccoy with [facility] oncology DEPRESSION - on bupropion and escitalopram DVT PROPHYLAXIS - SQ Lovenox CODE STATUS - DNR in the event of cardiac arrest per discussion by Dr. Kevin with patient 's . DISPO - In my clinical judgment this beneficiary meets acute admission criteria, established by [facility], that includes being hospitalized through two midnights. Agree with above H and P. Briefly 62F with hx of lung cancer presented with respiratory distress and was intubated in ER. As per family patient is on chemo for lung cancer. having cough since one month and was treated with two courses of abx. Cough somewhat increased last week Afebrile. Could not get hx from patient as she is currently intubated. p/e Ge s/p intubation Cvs s1 and s2 heard regular Rs cta b/l. 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 Y/N: Yes Risk Level: Moderate
[2017-07-29] MEDS ORDERED: MIDAZOLAM HCL 1 MG/ML 2ML VIAL IV PRN (14:15)
[2017-07-29] MEDS ORDERED: LEVALBUTEROL 1.25MG/3ML NEB INH PRN (14:15)
[2017-07-29] MEDS ORDERED: NURSING VERBAL MED ORDER ONE (14:15)
[2017-07-29] MEDS ORDERED: LEVOFLOXACIN CONSULT ACTIVE PRN (14:15)
[2017-07-29] MEDS ORDERED: CEFEPIME CONSULT ACTIVE PRN (14:15)
[2017-07-29] MEDS ORDERED: VANCOMYCIN CONSULT ACTIVE PRN (14:15)
[2017-07-29] MEDS ORDERED: VANCOMYCIN INJ 750 MG in SODIUM CHLORIDE 0.9% 250ML 250 ML IV ONE (15:00)
[2017-07-29] MEDS: NSS + 20MEQ KCL 1000ML 1,000 ML IV SCH (15:15)
[2017-07-29] MEDS: HEPARIN SOD 5000 UNIT/0.5 ML CARP SQ SCH ×2 (15:16→21:38)
[2017-07-29] MEDS: MIDAZOLAM 125MG/250ML D5W 250 ML IV PRN (15:17)
--- NOTE | 2017-07-29 15:43 | Pharmacy Progress Note ---
Pharmacy Antibiotic Consult Date of Service: Jul 29, 2017. Pharmacy Dosing Scope Pharmacy is consulted to initiate vancomycin IV dosing therapy, order appropriate labs and adjust drug dose/frequency. Subjective The patient is a 62 year old female admitted on Jul 29, 2017 at 10:48. Objective Height (Feet): 5 Height (Inches): 3.00 Weight (Kilograms): 70.500 Lab Results (24hrs): Test 07/29/17 09:19 07/29/17 09:28 07/29/17 09:30 07/29/17 09:32 White Blood Count 15.41 K/uL (4.8-10.8) Red Blood Count 3.13 M/uL (4.2-5.4) Hemoglobin 9.7 g/dL (12.0-16.0) Hematocrit 30.6 % (37-47) Mean Corpuscular Volume 97.8 fL (80-100) Mean Corpuscular Hemoglobin 31.0 pg (25-34) Mean Corpuscular Hemoglobin Concent 31.7 g/dl (32-36) Platelet Count 446 K/uL (130-400) Mean Platelet Volume 8.9 fL (7.4-10.4) RDW Standard Deviation 55.2 fL (36.4-46.3) RDW Coefficient of Variation 15.6 % (11.5-14.5) Neutrophils % (Manual) 69.6 % Lymphocytes % (Manual) 25.0 % Monocytes % (Manual) 2.7 % Eosinophils % (Manual) 2.7 % Neutrophils # (Manual) 10.73 K/uL (1.4-6.5) Total Absolute Neutrophils 10.73 K/uL (1.4-6.5) Lymphocytes # (Manual) 3.85 K/uL (1.2-3.4) Total Absolute Lymphocytes 3.85 K/uL (1.2-3.4) Monocytes # (Manual) 0.42 K/uL (0.11-0.59) Eosinophils # (Manual) 0.42 K/uL (0-0.5) Anisocytosis PRESENT Prothrombin Time 12.0 SECONDS (9.0-12.0) Prothromb Time International Ratio 1.1 (0.9-1.1) Activated Partial Thromboplast Time 27.5 SECONDS (21.0-31.0) Partial Thromboplastin Ratio 1.1 Sodium Level 134 mmol/L (136-145) Potassium Level 3.7 mmol/L (3.5-5.1) Chloride Level 100 mmol/L (98-107) Carbon Dioxide Level 22 mmol/L (21-32) Anion Gap 12.0 mmol/L (3-11) 22.0 mmol/L (16-25) Blood Urea Nitrogen 16 mg/dl (7-18) Creatinine 1.44 mg/dl (0.60-1.20) Estimated GFR () 45.0 Estimated GFR (Non- 38.8 BUN/Creatinine Ratio 10.9 (10-20) Random Glucose 331 mg/dl (70-99) Calcium Level 8.9 mg/dl (8.5-10.1) Magnesium Level 1.8 mg/dl (1.8-2.4) Total Bilirubin 0.3 mg/dl (0.2-1) Direct Bilirubin < 0.1 mg/dl (0-0.2) Aspartate Amino Transf (AST/SGOT) 24 U/L (15-37) Alanine Aminotransferase (ALT/SGPT) 30 U/L (12-78) Alkaline Phosphatase 90 U/L (45-117) Total Creatine Kinase 85 U/L (26-192) Creatine Kinase MB 3.7 ng/ml (0.5-3.6) Creatine Kinase MB Ratio 4.4 (0-3.0) Troponin I 0.392 ng/ml (0-0.045) Total Protein 7.6 gm/dl (6.4-8.2) Albumin 2.8 gm/dl (3.4-5.0) Lipase 91 U/L (73-393) Beta-Hydroxybutyric Acid 1.48 mg/dL (0.2-2.81) Venous Blood pH 7.17 (7.36-7.41) Venous Blood Partial Pressure CO2 57 mmHg (38.0-50.0) Venous Blood Partial Pressure O2 41 mmHg Venous Blood HCO3 20 mmol/L Venous Blood Oxygen Saturation 62.1 % Venous Blood Base Excess -8.2 mEq/L Bedside Hemoglobin 9.9 g/dl (12.0-16.0) Bedside Hematocrit 29 % (37-47) Bedside Sodium 139 mEq/L (135-144) Bedside Potassium 3.9 mEq/L (3.3-5.0) Bedside Chloride 100 mEq/L (101-112) Bedside Total CO2 22 mEq/l (24-31) Bedside Blood Urea Nitrogen 17 mg/dl (7-18) Bedside Creatinine 1.2 mg/dl (0.6-1.3) Bedside Glucose (other) 353 mg/dl (70-99) Bedside Ionized Calcium (Lynsey) 1.19 mmol/l (1.12-1.32) Bedside Troponin I 0.310 ng/ml (0-0.045) Test 07/29/17 09:34 07/29/17 10:09 07/29/17 11:00 07/29/17 12:36 Bedside Lactic Acid Venous 8.18 mmol/L (0.90-1.70) Influenza Type A Antigen Neg for Influ A (NEG) Influenza Type B Antigen Neg for Influ B (NEG) Urine Color YELLOW Urine Appearance CLEAR (CLEAR) Urine pH 5.5 (4.5-7.5) Urine Specific [place] 1.025 (1.000-1.030) Urine Protein NEG (NEG) Urine Glucose (UA) TRACE (NEG) Urine Ketones NEG (NEG) Urine Occult Blood 1+ (NEG) Urine Nitrite NEG (NEG) Urine Bilirubin NEG (NEG) Urine Urobilinogen NEG (NEG) Urine Leukocyte Esterase NEG (NEG) Urine WBC (Auto) 1-5 /hpf (0-5) Urine RBC (Auto) 0-4 /hpf (0-4) Urine Hyaline Casts (Auto) 5-10 /lpf (0-5) Urine Epithelial Cells (Auto) >30 /lpf (0-5) Urine Bacteria (Auto) NEG (NEG) Lactic Acid Level 2.8 mmol/L (0.4-2.0) Troponin I 4.680 ng/ml (0-0.045) Test 07/29/17 14:22 07/29/17 15:23 Blood Gas Sample Site R Radial R Radial Bedside Blood Gas pH (LAB) 7.12 (7.35-7.45) 7.19 (7.35-7.45) Bedside Blood Gas pCO2 (LAB) 73 mmHg (35-46) 64 mmHg (35-46) Bedside Blood Gas pO2 (LAB) 86 mmHg (80-95) 84 mmHg (80-95) Bedside Blood Gas HCO3 (LAB) 24 meq/L (19-24) 24 meq/L (19-24) Bedside Blood Gas Total CO2 26 mEq/l (24-31) 26 mEq/l (24-31) Bedside Blood Gas Base Excess (LAB) -6.0 meq/L (-9-1.8) -4.0 meq/L (-9-1.8) Bedside Blood Gas O2 Saturation 92.0 % (90-95) 93.0 % (90-95) Rinku Test Pass Pass Oxygen Delivery Device Ventilator Ventilator Bedside Oxygen Rate (breaths/min) 13 20 Blood Gas Minute Ventilation 6.2 7.8 Bedside FiO2 70 % 70 % Blood Gas Tidal Volume 480 400 Blood Gas PEEP 8 10 Assessment & Plan Assessment * 62 yo F with lung CA admitted w respiratory failure intubated in ED and transferred to ICU. On cefepime, levofloxacin, and vancomycin. * SCr increased acutely - uncertain CrCL. Will dose vancomycin via level. * Vancomycin 25 mg/kg IV x1 (given as 1000 mg x1 in ED then added 750 mg IV x1) * Check level ~12 hr after start of 1st dose Plan * Random level today @ 2100 * Dose vancomycin based on level: * <= 20 mcg/mL: vancomycin 1000 mg IV STA * 20-25 mcg/mL: vancomycin 750 mg IV @ 0000 * >= 25 mcg/mL: hold vancomycin and order another random level w AM labs Pharmacy will continue to follow and will adjust dose/frequency as necessary. Thank you
[2017-07-29] MEDS: FENTANYL CITRATE INJ 50 MCG/1 ML 2 ML VIAL IV PRN ×4 (15:49→21:51)
--- NOTE | 2017-07-29 16:04 | CARDIOLOGY CONSULTATION ---
DATE OF CONSULTATION: 07/29/2017 DATE OF CONSULTATION: 07/29/2017 REFERRING: Dr. Kevin. PRIMARY CARE PHYSICIAN: Dr. Francis. INDICATIONS: Acute respiratory failure. HISTORY OF PRESENT ILLNESS: The patient is a 62-year-old female with complex recent history is notable diagnosis of metastatic adenocarcinoma lung mucinous type, prior history of chemotherapy summer. The patient today presented to the Emergency Room with acute respiratory distress, came on abruptly this morning. The patient had been seen approximately 1 week before for worsening cough and shortness of breath and had been treated with antibiotic therapies. The patient was intubated on ER presentation, unable to add additional information, though with initial laboratory studies demonstrated significant acidosis and hypoxia. CT scan of the chest was performed which per report demonstrates bulky mediastinal and hilar adenopathy with mass obstructing the right main stem bronchus. Laboratory studies demonstrate elevated troponin and patient is referred for further cardiac evaluation as well. The patient was examined with family at bedside. ALLERGIES: ERYTHROMYCIN. MEDICATIONS: Prior to hospitalization were Tessalon Perles, Wellbutrin 200 mg per day, vitamin B12 per day, dexamethasone 1 mg b.i.d. p.r.n. prior to chemo, doxycycline 100 mg b.i.d., Lexapro 20 daily, folic acid 400 mcg p.o. daily, multivitamin per day, Compazine and Zofran. FAMILY HISTORY: Positive for breast cancer and pancreatic cancer. SOCIAL HISTORY: The patient is a former smoker. PAST SURGICAL HISTORY: Notable for dental surgeries and lymph node biopsy. PHYSICAL EXAMINATION: GENERAL: The patient is ill appearing female, intubated with mild agitation. VITAL SIGNS: Heart rate 101, blood pressures 101/91. HEAD, EYES, EARS, NOSE, AND THROAT: Normocephalic, atraumatic. NECK: Thin. There is no distinct jugular venous distention. LUNGS: Revealed markedly diminished breath sounds on the right, mild rhonchorous sounds on the left. CARDIOVASCULAR: Tachycardic, regular. There is no S3 gallop audible. PMI is palpable with mild displacement. ABDOMEN: Soft. There is no palpable hepatosplenomegaly. EXTREMITIES: Without cyanosis or clubbing. There is diffuse modeling in the inner thighs and lower extremities. Upper chest without thready distal pulses. NEUROLOGIC: The patient is sedated. LABORATORY DATA: On presentation, sodium is 139, potassium is 3.9, chloride is 100, bicarbonate is 22, BUN 17, creatinine is 1.2, glucose 353. Troponin is 4.6. Chest x-ray done pre reintubation revealed multiple pulmonary nodules in both lungs, including progression in the left lung metastases, small right pleural effusion. CT scan of the chest as described in the HPI demonstrated progression of pulmonary mass with the right main stem bronchus obstruction. Echocardiogram performed at bedside with preliminary review currently reveals mildly dilated left ventricle with severe diffuse left ventricular dysfunction with only basilar structures luis in a pattern suggestive of catecholamine mediated cardiomyopathy, EF 10-15% without segmental regional abnormality. On review of CT scan as well coronary arteries can be visualized and seen to be patent at least mid vessel on the left anterior descending and right coronary artery and distal vessels and left circumflex without obstruction. EKG reveals sinus tachycardia with left anterior fascicular block, borderline left bundle branch block. Repeat study after intubation demonstrated once again sinus tachycardia with poor R-wave progression across the anterior precordial leads, mild widening QRS. IMPRESSION: A 62-year-old female presents with acute respiratory distress in the setting of metastatic lung cancer and right main stem bronchus occlusion, currently intubated in the intensive care unit. Cardiac enzymes are elevated, likely reflecting acute strain. Echocardiogram is suggestive of severe, diffuse, catecholamine mediated cardiomyopathy with severe LV dysfunction. Echo will be reviewed further. Discussed findings in detail with the patient and staff. The patient may ultimately benefit from low dose beta blockers though hemodynamics do not appear to permit it at this time. Overall prognosis is limited as cause of the patient's current stressors does not appear to be easily reversible. Discussed this initially, currently not in heart failure by exam but appears hypoperfused by skin exam and mottling.
--- NOTE | 2017-07-29 16:12 | Oncology Consultation ---
Oncology/Heme Consultation Date of Consultation: Jul 29, 2017. 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 Swift is a 62-year-old female [facility]. She has a diagnosis of mucinous adenocarcinoma the lung dates back to November 2016. Molecular studies at the outset showed biomarkers of her really negative as well as a PD-L1 assay. She had presented with a bilateral lung nodules and was treated with 6 cycles of carboplatinum and pemetrexed from January - April 2017. She had what could be described as a modest radiographic response and then placed on maintenance pemetrexed. She presents now with rather acute onset of shortness of breath and CT scans that show marked progression of the underlying disease particularly affecting the right lung. She is not able to give a review of systems. Her sister speaks for her. She states that she had been fairly active at home. She has not had a fever. She had not had a cough. Shortness of breath became on again fairly quickly. Past Medical/Surgical History Progressive mucinous adenocarcinoma Family History FH: breast cancer SISTER FH: pancreatic cancer FATHER Social History Smoking Status: Former Smoker Alcohol Use: occasionally Allergies Coded Allergies: Erythromycin (Verified Adverse Reaction, Unknown, NAUSEA/VOMITING, 07/29/17 ) Home Medications Scheduled Bupropion Hcl (Wellbutrin Sr), 1 TAB PO BID Cyanocobalamin (Vitamin B-12), 500 MCG PO DAILY Doxycycline Monohydrate (Monodox), 100 MG PO BID Escitalopram Oxalate (Lexapro), 20 MG PO DAILY Folic Acid (Folic Acid), 1 TAB PO DAILY Multivitamin (Multivitamin), 1 TAB PO DAILY Scheduled PRN Benzonatate (Tessalon Perles), 1 CAP PO TID PRN for Cough Dexamethasone (Decadron), 1 MG PO BID PRN for prior to chemo Ondansetron Hcl (Zofran), 8 MG PO Q8 PRN for Nausea Prochlorperazine Maleate (Compazine), 10 MG PO Q6H PRN for Nausea Current Inpatient Medications Current Inpatient Medications Medications (Trade) Dose Ordered Sig/Ankit Route Start Time Stop Time Status Last Admin Dose Admin Ioversol (Optiray 320) 125 ml UD PRN IV 07/29/17 09:45 1/21/18 09:44 Miscellaneous Information (Icu Protocol For Hyperglycemia) 1 ea PRN PRN N/A 07/29/17 10:45 07/31/17 10:44 Cefepime HCl (Consult) 1 ea UD PRN N/A 07/29/17 14:15 08/28/17 14:14 Levofloxacin (Consult) 1 ea UD PRN N/A 07/29/17 14:15 08/28/17 14:14 Miscellaneous Information (Consult) 1 ea UD PRN N/A 07/29/17 14:15 08/28/17 14:14 Fentanyl Citrate (Fentanyl Inj) 100 mcg Q2H PRN IV 07/29/17 14:15 08/12/17 14:14 07/29/17 15:49 100 MCG Heparin Sodium (Porcine) (Heparin Sq 5000 Unit/0.5ml) 5,000 unit Q8 SQ 07/29/17 14:15 08/28/17 14:14 07/29/17 15:16 5,000 UNIT Potassium Chloride/Sodium Chloride 1,000 ml @ 80 mls/hr [id number] IV 07/29/17 15:00 08/28/17 14:59 07/29/17 15:15 80 MLS/HR Levalbuterol (Xopenex 1.25MG/ 3ML Neb) 1.25 mg Q6H PRN INH 07/29/17 14:15 08/28/17 14:14 Cefepime HCl 2000 mg/Syringe 20 ml @ 5 mls/min Q12@1000,2200 IV 07/29/17 22:00 08/05/17 21:59 Levofloxacin 750 mg/Prmx 150 ml @ 100 mls/hr Q2D@0900 IV 07/31/17 09:00 08/05/17 08:59 Vancomycin HCl 750 mg/Sodium Chloride 265 ml @ 125 mls/hr TODAY@1500 ONCE IV 07/29/17 15:00 07/29/17 17:07 07/29/17 15:17 125 MLS/HR Midazolam HCl 250 ml @ 0 mls/hr Q0M PRN IV 07/29/17 14:45 08/28/17 14:44 07/29/17 15:17 2 MLS/HR Pantoprazole Sodium 40 mg/ Syringe 10 ml @ 5 mls/min DAILY@11 IV 07/29/17 16:00 08/28/17 15:59 Review of Systems Not able to obtain - patient currently intubated Physical Exam Date Time Temp Pulse Resp B/P (MAP) Pulse Ox O2 Delivery O2 Flow Rate FiO2 07/29/17 14:37 70 07/29/17 14:00 36.8 101 12 101/91 (94) 90 Mechanical Ventilator 07/29/17 12:10 70 07/29/17 11:15 104 12 115/76 93 07/29/17 11:00 106 12 118/85 92 07/29/17 10:53 70 07/29/17 10:45 105 12 116/77 90 07/29/17 10:44 105 116/77 90 Mechanical Ventilator 60 07/29/17 10:35 90 Mechanical Ventilator 15.0 60 07/29/17 10:30 107 129/76 91 Mechanical Ventilator 60 07/29/17 10:07 107 18 125/77 97 Mechanical Ventilator 07/29/17 09:45 60 07/29/17 09:38 100 07/29/17 09:31 122 26 137/111 94 CPAP 07/29/17 09:23 122 30 111/85 95 BiPAP 40 07/29/17 09:21 Nasal Cannula 07/29/17 09:20 122 34 129/114 97 BiPAP 07/29/17 09:20 122 37 94 BiPAP/CPAP 40 07/29/17 09:15 122 94 40 07/29/17 09:15 121 07/29/17 09:10 94 Nasal Cannula 15.0 07/29/17 09:10 94 Nasal Cannula 15.0 07/29/17 09:10 36.7 122 36 116/92 95 Nasal Cannula 15.0 Constitutional: Currently intubated Eyes: Eyes are MEE EOMI without conjuctival erythema or icterus. Neck: Negative for masses or palpable thyromegaly Respiratory: Lung sounds were generally clear bilaterally Cardiovascular: Heart was RRR without significant murmur, gallops aoe rubs Gastrointestinal: No palpable hepatic or splenomegaly. The abdomen was soft with normal bowel sounds. Lymphatic system: there was no palpable peripheral lymphadenopathy Musculoskeletal System: The musculoskeletal system seemed concordant with age. Skin: The skin was negative for jaundice. Neurologic exam: Unable to accurately examine Psychiatric exam: Unable to assess Breast exam: Not done Extremities: Negative for edema Laboratory Results Last 24 Hours Test 07/29/17 09:19 07/29/17 09:28 07/29/17 09:30 07/29/17 09:32 White Blood Count 15.41 K/uL Red Blood Count 3.13 M/uL Hemoglobin 9.7 g/dL Hematocrit 30.6 % Mean Corpuscular Volume 97.8 fL Mean Corpuscular Hemoglobin 31.0 pg Mean Corpuscular Hemoglobin Concent 31.7 g/dl Platelet Count 446 K/uL Mean Platelet Volume 8.9 fL RDW Standard Deviation 55.2 fL RDW Coefficient of Variation 15.6 % Neutrophils % (Manual) 69.6 % Lymphocytes % (Manual) 25.0 % Monocytes % (Manual) 2.7 % Eosinophils % (Manual) 2.7 % Neutrophils # (Manual) 10.73 K/uL Total Absolute Neutrophils 10.73 K/uL Lymphocytes # (Manual) 3.85 K/uL Total Absolute Lymphocytes 3.85 K/uL Monocytes # (Manual) 0.42 K/uL Eosinophils # (Manual) 0.42 K/uL Anisocytosis PRESENT Prothrombin Time 12.0 SECONDS Prothromb Time International Ratio 1.1 Activated Partial Thromboplast Time 27.5 SECONDS Partial Thromboplastin Ratio 1.1 Sodium Level 134 mmol/L Potassium Level 3.7 mmol/L Chloride Level 100 mmol/L Carbon Dioxide Level 22 mmol/L Anion Gap 12.0 mmol/L 22.0 mmol/L Blood Urea Nitrogen 16 mg/dl Creatinine 1.44 mg/dl Estimated GFR () 45.0 Estimated GFR (Non- 38.8 BUN/Creatinine Ratio 10.9 Random Glucose 331 mg/dl Calcium Level 8.9 mg/dl Magnesium Level 1.8 mg/dl Total Bilirubin 0.3 mg/dl Direct Bilirubin < 0.1 mg/dl Aspartate Amino Transf (AST/SGOT) 24 U/L Alanine Aminotransferase (ALT/SGPT) 30 U/L Alkaline Phosphatase 90 U/L Total Creatine Kinase 85 U/L Creatine Kinase MB 3.7 ng/ml Creatine Kinase MB Ratio 4.4 Troponin I 0.392 ng/ml Total Protein 7.6 gm/dl Albumin 2.8 gm/dl Lipase 91 U/L Beta-Hydroxybutyric Acid 1.48 mg/dL Venous Blood pH 7.17 Venous Blood Partial Pressure CO2 57 mmHg Venous Blood Partial Pressure O2 41 mmHg Venous Blood HCO3 20 mmol/L Venous Blood Oxygen Saturation 62.1 % Venous Blood Base Excess -8.2 mEq/L Bedside Hemoglobin 9.9 g/dl Bedside Hematocrit 29 % Bedside Sodium 139 mEq/L Bedside Potassium 3.9 mEq/L Bedside Chloride 100 mEq/L Bedside Total CO2 22 mEq/l Bedside Blood Urea Nitrogen 17 mg/dl Bedside Creatinine 1.2 mg/dl Bedside Glucose (other) 353 mg/dl Bedside Ionized Calcium (Lynsey) 1.19 mmol/l Bedside Troponin I 0.310 ng/ml Test 07/29/17 09:34 07/29/17 10:09 07/29/17 11:00 07/29/17 12:36 Bedside Lactic Acid Venous 8.18 mmol/L Influenza Type A Antigen Neg for Influ A Influenza Type B Antigen Neg for Influ B Urine Color YELLOW Urine Appearance CLEAR Urine pH 5.5 Urine Specific [place] 1.025 Urine Protein NEG Urine Glucose (UA) TRACE Urine Ketones NEG Urine Occult Blood 1+ Urine Nitrite NEG Urine Bilirubin NEG Urine Urobilinogen NEG Urine Leukocyte Esterase NEG Urine WBC (Auto) 1-5 /hpf Urine RBC (Auto) 0-4 /hpf Urine Hyaline Casts (Auto) 5-10 /lpf Urine Epithelial Cells (Auto) >30 /lpf Urine Bacteria (Auto) NEG Lactic Acid Level 2.8 mmol/L Troponin I 4.680 ng/ml Test 07/29/17 14:22 07/29/17 15:23 Blood Gas Sample Site R Radial R Radial Bedside Blood Gas pH (LAB) 7.12 7.19 Bedside Blood Gas pCO2 (LAB) 73 mmHg 64 mmHg Bedside Blood Gas pO2 (LAB) 86 mmHg 84 mmHg Bedside Blood Gas HCO3 (LAB) 24 meq/L 24 meq/L Bedside Blood Gas Total CO2 26 mEq/l 26 mEq/l Bedside Blood Gas Base Excess (LAB) -6.0 meq/L -4.0 meq/L Bedside Blood Gas O2 Saturation 92.0 % 93.0 % Rinku Test Pass Pass Oxygen Delivery Device Ventilator Ventilator Bedside Oxygen Rate (breaths/min) 13 20 Blood Gas Minute Ventilation 6.2 7.8 Bedside FiO2 70 % 70 % Blood Gas Tidal Volume 480 400 Blood Gas PEEP 8 10 Assessment & Plan Progressive mucinous adenocarcinoma of the lung. As far as therapy goes we really do not have what would be possibly a helpful systemic approach. In reviewing his CT scans the right lower lung is completely encased with this tumor as is the right main bronchus. Pulmonary nodules have increased in number and size. I do not see above valid way to open up the airway. Radiation therapy would have to accomplish quite a bit of area and I do not suspect that he would open up into functioning lung. I did review with the edge banding machine offbearer. Pulmonary stents were considered but again not likely to be very helpful. This was all reviewed with power of hydraulic mechanic and family. At this juncture and with the CT evidence of rather rapid progression I believe that comfort measures only would be appropriate. We did review the process of a terminal wean and all seem to understand. Other family members are still arriving from elsewhere. This will be also reviewed with the edge banding machine offbearer.
[2017-07-29] MEDS: PANTOprazole INJ 40 MG in SYRINGE 0 ML IV SCH (16:52)
--- NOTE | 2017-07-29 17:46 | ECHOCARDIOGRAM REPORT ---
*NOTICE TO RECEIVING DEMOCRAT AGENCY This information is strictly Confidential and protected under [place] law. [place] law prohibits you from making any further disclosure of this information unless further disclosure is expressly permitted by the written consent of the person to whom it pertains or is authorized by law. A general authorization for the release of medical or other information is not sufficient for this purpose. Hospital accepts no responsibility if the information is made available to any other person, INCLUDING THE PATIENT. Interpretation Summary * Conclusions -- * The left ventricle is borderline dilated. * There is normal left ventricular wall thickness. * There is severe global hypokinesis of the left ventricle. * Ejection Fraction = 15-20%. * No regional wall motion abnormalities noted. 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 * There is trace mitral regurgitation. * There is moderate tricuspid regurgitation. * Right ventricular systolic pressure is elevated at 40-50mmHg. Procedure Details * A complete two-dimensional transthoracic echocardiogram was performed (2D, M-mode, Doppler and color flow Doppler). Left Ventricle * The left ventricle is borderline dilated. * There is normal left ventricular wall thickness. * Ejection Fraction = 15-20%. * There is severe global hypokinesis of the left ventricle. 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 * No regional wall motion abnormalities noted. Right Ventricle * The right ventricle is normal in size and function. Atria * The left atrium is moderately dilated. * Right atrial size is normal. * No ASD detected; PFO is not assessed. Mitral Valve * The mitral valve anatomy is normal. * There is no mitral valve stenosis. * There is trace mitral regurgitation. Tricuspid Valve * The tricuspid valve anatomy is normal. * There is no tricuspid stenosis. * There is moderate tricuspid regurgitation. * Right ventricular systolic pressure is elevated at 40-50mmHg. Aortic Valve * The aortic valve is trileaflet. * No hemodynamically significant valvular aortic stenosis. * No aortic regurgitation is present. Pulmonic Valve * The pulmonic valve is not well visualized. Great Vessels * The aortic root is normal size. Pericardium/Pleural * There is no pericardial effusion. MMode 2D Measurements and Calculations IVSd 0.83 cm IVSs 1.1 cm LVIDd 5.1 cm LVIDs 3.8 cm LVPWd 10 cm LVPWs 1.4 cm IVS/LVPW 0.83 FS 26.6 % EDV(Teich) 126.3 ml ESV(Teich) 60.9 ml EF(Teich) 51.7 % EDV(cubed) 136.0 ml ESV(cubed) 53.7 ml EF(cubed) 60.5 % % IVS thick 38.5 % % LVPW thick 42.6 % LV mass(C)d 168.8 grams LV mass(C)dI 98.4 grams/m\S\2 LV mass(C)s 168.0 grams LV mass(C)sI 98.0 grams/m\S\2 SV(Teich) 65.3 ml SI(Teich) 38.1 ml/m\S\2 SV(cubed) 82.3 ml SI(cubed) 48.0 ml/m\S\2 EPSS 2.4 cm Ao root diam 2.4 cm Ao root area 4.4 cm\S\2 ACS 1.3 cm LA dimension 2.9 cm LA/Ao 1.2 LVAd ap4 30.5 cm\S\2 LVLd ap4 7.3 cm EDV(MOD-sp4) 105.5 ml EDV(sp4-el) 108.3 ml LVAs ap4 23.8 cm\S\2 LVLs ap4 6.7 cm ESV(MOD-sp4) 70.9 ml ESV(sp4-el) 72.0 ml EF(MOD-sp4) 32.9 % EF(sp4-el) 33.6 % LVAd ap2 33.7 cm\S\2 LVLd ap2 8.0 cm EDV(MOD-sp2) 123.5 ml EDV(sp2-el) 119.9 ml LVAs ap2 24.8 cm\S\2 LVLs ap2 6.5 cm ESV(MOD-sp2) 80.3 ml ESV(sp2-el) 80.7 ml EF(MOD-sp2) 35.0 % EF(sp2-el) 32.7 % LVLd %diff 9.3 % EDV(MOD-bp) 116.3 ml LVLs %diff -3.53 % ESV(MOD-bp) 76.6 ml EF(MOD-bp) 34.1 % SV(MOD-sp4) 34.7 ml SI(MOD-sp4) 20.2 ml/m\S\2 SV(MOD-sp2) 43.2 ml SI(MOD-sp2) 25.2 ml/m\S\2 SV(MOD-bp) 39.7 ml SI(MOD-bp) 23.1 ml/m\S\2 SV(sp4-el) 36.3 ml SI(sp4-el) 21.2 ml/m\S\2 SV(sp2-el) 39.2 ml SI(sp2-el) 22.8 ml/m\S\2 Doppler Measurements and Calculations MV E max maria alejandra 69.8 cm/sec MV A max maria alejandra 70.3 cm/sec MV E/A 0.99 MV dec time 0.12 sec Ao V2 max 130.9 cm/sec Ao max PG 6.9 mmHg Ao max PG (full) 4.2 mmHg LV V1 max PG 2.6 mmHg LV V1 max 81.0 cm/sec PA V2 max 91.7 cm/sec PA max PG 3.4 mmHg TR max maria alejandra 311.8 cm/sec
--- NOTE | 2017-07-29 20:52 | Critical Care Consultation ---
Critical Care Consultation Date of Consultation: Jul 29, 2017. Attending Physician: Jarrett Strickland MD Reason for Consultation: Respiratory distress, failed BiPAP requiring intubation History of Present Illness 62 yo F PMH significant for progressive mucinous adenocarcinoma of the lung presented to ED with worsening dyspnea, productive cough, and chest congestion. Per and sister, patient had been on outpatient treatment for URI in the last 2 weeks on multiple antibiotics, and today her respiratory symptoms suddenly worsened. The patient is on home oxygen but is still reportedly quite active, and Oxygen saturation was 98% on EMS arrival. She received a DuoNeb with albuterol, 125 mg solumedrol en route to hospital. She was tried on BiPAP while in the ED but continued to decline and required intubation. CT scan showed obstruction of right mainstem bronchus by mediastinal mass/adenopathy along with increase in size and number of multiple bilateral pulmonary nodules. Patient ROS unobtainable 2/2 patient sedation, intubation, and condition. Per heme/onc, she was diagnosed with mucinous adenoca in November 2016, presenting with bilateral lung nodules, and had been treated with 6 cycles of carboplatinum and pemetrexed from January-Apr 2017. She had a modest response to this therapy and was then placed on maintenance pemetrexed once every 3 weeks. She was due for her next dose of chemo tomorrow, 07/30/17 Past Medical/Surgical History Primary mucinous adenocarcinoma of lung Depression Family History FH: breast cancer SISTER FH: pancreatic cancer FATHER Social History Smoking Status: Former Smoker Alcohol Use: occasionally Marital Status: Housing Status: lives with family Allergies Coded Allergies: Erythromycin (Verified Adverse Reaction, Unknown, NAUSEA/VOMITING, 07/29/17 ) Home Medications Scheduled Bupropion Hcl (Wellbutrin Sr), 1 TAB PO BID Cyanocobalamin (Vitamin B-12), 500 MCG PO DAILY Doxycycline Monohydrate (Monodox), 100 MG PO BID Escitalopram Oxalate (Lexapro), 20 MG PO DAILY Folic Acid (Folic Acid), 1 TAB PO DAILY Multivitamin (Multivitamin), 1 TAB PO DAILY Scheduled PRN Benzonatate (Tessalon Perles), 1 CAP PO TID PRN for Cough Dexamethasone (Decadron), 1 MG PO BID PRN for prior to chemo Ondansetron Hcl (Zofran), 8 MG PO Q8 PRN for Nausea Prochlorperazine Maleate (Compazine), 10 MG PO Q6H PRN for Nausea Current Inpatient Medications Current Inpatient Medications Medications (Trade) Dose Ordered Sig/Ankit Route Start Time Stop Time Status Last Admin Dose Admin Ioversol (Optiray 320) 125 ml UD PRN IV 07/29/17 09:45 08/02/17 09:44 Miscellaneous Information (Icu Protocol For Hyperglycemia) 1 ea PRN PRN N/A 07/29/17 10:45 07/31/17 10:44 Cefepime HCl (Consult) 1 ea UD PRN N/A 07/29/17 14:15 08/28/17 14:14 Levofloxacin (Consult) 1 ea UD PRN N/A 07/29/17 14:15 08/28/17 14:14 Miscellaneous Information (Consult) 1 ea UD PRN N/A 07/29/17 14:15 08/28/17 14:14 Fentanyl Citrate (Fentanyl Inj) 100 mcg Q2H PRN IV 07/29/17 14:15 08/12/17 14:14 07/29/17 19:39 100 MCG Heparin Sodium (Porcine) (Heparin Sq 5000 Unit/0.5ml) 5,000 unit Q8 SQ 07/29/17 14:15 08/28/17 14:14 07/29/17 15:16 5,000 UNIT Potassium Chloride/Sodium Chloride 1,000 ml @ 80 mls/hr [id number] IV 07/29/17 15:00 08/28/17 14:59 07/29/17 15:15 80 MLS/HR Levalbuterol (Xopenex 1.25MG/ 3ML Neb) 1.25 mg Q6H PRN INH 07/29/17 14:15 08/28/17 14:14 Cefepime HCl 2000 mg/Syringe 20 ml @ 5 mls/min Q12@1000,2200 IV 07/29/17 22:00 08/05/17 21:59 Levofloxacin 750 mg/Prmx 150 ml @ 100 mls/hr Q2D@0900 IV 07/31/17 09:00 08/05/17 08:59 Midazolam HCl 250 ml @ 0 mls/hr Q0M PRN IV 07/29/17 14:45 08/28/17 14:44 07/29/17 15:17 2 MLS/HR Pantoprazole Sodium 40 mg/ Syringe 10 ml @ 5 mls/min DAILY@11 IV 07/29/17 16:00 08/28/17 15:59 07/29/17 16:52 5 MLS/MIN Review of Systems Patient ROS unobtainable secondary to patient sedation, intubation, and condition. Physical Exam Date Time Temp Pulse Resp B/P (MAP) Pulse Ox O2 Delivery O2 Flow Rate FiO2 07/29/17 17:53 70 07/29/17 17:01 99 20 81/58 (65) 93 07/29/17 16:30 98 20 104/82 (86) 93 07/29/17 16:00 97 20 93/76 (85) 92 07/29/17 16:00 70 07/29/17 16:00 36.8 07/29/17 16:00 93 Mechanical Ventilator 70 07/29/17 15:30 98 21 111/82 (87) 93 07/29/17 15:00 99 20 109/73 (76) 93 07/29/17 14:37 70 07/29/17 14:00 36.8 101 12 101/91 (94) 90 Mechanical Ventilator 07/29/17 12:10 70 07/29/17 11:15 104 12 115/76 93 07/29/17 11:00 106 12 118/85 92 07/29/17 10:53 70 07/29/17 10:45 105 12 116/77 90 07/29/17 10:44 105 116/77 90 Mechanical Ventilator 60 07/29/17 10:35 90 Mechanical Ventilator 15.0 60 07/29/17 10:30 107 129/76 91 Mechanical Ventilator 60 07/29/17 10:07 107 18 125/77 97 Mechanical Ventilator 07/29/17 09:45 60 07/29/17 09:38 100 07/29/17 09:31 122 26 137/111 94 CPAP 07/29/17 09:23 122 30 111/85 95 BiPAP 40 07/29/17 09:21 Nasal Cannula 07/29/17 09:20 122 34 129/114 97 BiPAP 07/29/17 09:20 122 37 94 BiPAP/CPAP 40 07/29/17 09:15 122 94 40 07/29/17 09:15 121 07/29/17 09:10 94 Nasal Cannula 15.0 07/29/17 09:10 94 Nasal Cannula 15.0 07/29/17 09:10 36.7 122 36 116/92 95 Nasal Cannula 15.0 General Appearance: WD/WN, other (Patient intubated) Head: normocephalic, atraumatic Eyes: PERRLA, no discharge Neck: trachea midline, no nuchal rigidity Respiratory: rales, other (Decreased breath sounds in RLL, rales throughout lungs field; intubated with equal expansion; skin on chest wall mottled) Cardiovasular: regular rate/rhythm, normal S1S2, no M/G/R Abdomen: non tender, normal bowel sounds, no rebound, no masses, no guarding Neuro: decreased LOC (secondary to sedation, intubation, and condition) Laboratory Results Last 24 Hours Test 07/29/17 09:19 07/29/17 09:28 07/29/17 09:30 07/29/17 09:32 White Blood Count 15.41 K/uL Red Blood Count 3.13 M/uL Hemoglobin 9.7 g/dL Hematocrit 30.6 % Mean Corpuscular Volume 97.8 fL Mean Corpuscular Hemoglobin 31.0 pg Mean Corpuscular Hemoglobin Concent 31.7 g/dl Platelet Count 446 K/uL Mean Platelet Volume 8.9 fL RDW Standard Deviation 55.2 fL RDW Coefficient of Variation 15.6 % Neutrophils % (Manual) 69.6 % Lymphocytes % (Manual) 25.0 % Monocytes % (Manual) 2.7 % Eosinophils % (Manual) 2.7 % Neutrophils # (Manual) 10.73 K/uL Total Absolute Neutrophils 10.73 K/uL Lymphocytes # (Manual) 3.85 K/uL Total Absolute Lymphocytes 3.85 K/uL Monocytes # (Manual) 0.42 K/uL Eosinophils # (Manual) 0.42 K/uL Anisocytosis PRESENT Prothrombin Time 12.0 SECONDS Prothromb Time International Ratio 1.1 Activated Partial Thromboplast Time 27.5 SECONDS Partial Thromboplastin Ratio 1.1 Sodium Level 134 mmol/L Potassium Level 3.7 mmol/L Chloride Level 100 mmol/L Carbon Dioxide Level 22 mmol/L Anion Gap 12.0 mmol/L 22.0 mmol/L Blood Urea Nitrogen 16 mg/dl Creatinine 1.44 mg/dl Estimated GFR () 45.0 Estimated GFR (Non- 38.8 BUN/Creatinine Ratio 10.9 Random Glucose 331 mg/dl Calcium Level 8.9 mg/dl Magnesium Level 1.8 mg/dl Total Bilirubin 0.3 mg/dl Direct Bilirubin < 0.1 mg/dl Aspartate Amino Transf (AST/SGOT) 24 U/L Alanine Aminotransferase (ALT/SGPT) 30 U/L Alkaline Phosphatase 90 U/L Total Creatine Kinase 85 U/L Creatine Kinase MB 3.7 ng/ml Creatine Kinase MB Ratio 4.4 Troponin I 0.392 ng/ml Total Protein 7.6 gm/dl Albumin 2.8 gm/dl Lipase 91 U/L Beta-Hydroxybutyric Acid 1.48 mg/dL Venous Blood pH 7.17 Venous Blood Partial Pressure CO2 57 mmHg Venous Blood Partial Pressure O2 41 mmHg Venous Blood HCO3 20 mmol/L Venous Blood Oxygen Saturation 62.1 % Venous Blood Base Excess -8.2 mEq/L Bedside Hemoglobin 9.9 g/dl Bedside Hematocrit 29 % Bedside Sodium 139 mEq/L Bedside Potassium 3.9 mEq/L Bedside Chloride 100 mEq/L Bedside Total CO2 22 mEq/l Bedside Blood Urea Nitrogen 17 mg/dl Bedside Creatinine 1.2 mg/dl Bedside Glucose (other) 353 mg/dl Bedside Ionized Calcium (Lynsey) 1.19 mmol/l Bedside Troponin I 0.310 ng/ml Test 07/29/17 09:34 07/29/17 10:09 07/29/17 11:00 07/29/17 12:36 Bedside Lactic Acid Venous 8.18 mmol/L Influenza Type A Antigen Neg for Influ A Influenza Type B Antigen Neg for Influ B Urine Color YELLOW Urine Appearance CLEAR Urine pH 5.5 Urine Specific [place] 1.025 Urine Protein NEG Urine Glucose (UA) TRACE Urine Ketones NEG Urine Occult Blood 1+ Urine Nitrite NEG Urine Bilirubin NEG Urine Urobilinogen NEG Urine Leukocyte Esterase NEG Urine WBC (Auto) 1-5 /hpf Urine RBC (Auto) 0-4 /hpf Urine Hyaline Casts (Auto) 5-10 /lpf Urine Epithelial Cells (Auto) >30 /lpf Urine Bacteria (Auto) NEG Lactic Acid Level 2.8 mmol/L Troponin I 4.680 ng/ml Test 07/29/17 14:22 07/29/17 15:23 07/29/17 17:53 07/29/17 18:53 Blood Gas Sample Site R Radial R Radial Bedside Blood Gas pH (LAB) 7.12 7.19 Bedside Blood Gas pCO2 (LAB) 73 mmHg 64 mmHg Bedside Blood Gas pO2 (LAB) 86 mmHg 84 mmHg Bedside Blood Gas HCO3 (LAB) 24 meq/L 24 meq/L Bedside Blood Gas Total CO2 26 mEq/l 26 mEq/l Bedside Blood Gas Base Excess (LAB) -6.0 meq/L -4.0 meq/L Bedside Blood Gas O2 Saturation 92.0 % 93.0 % Rinku Test Pass Pass Oxygen Delivery Device Ventilator Ventilator Bedside Oxygen Rate (breaths/min) 13 20 Blood Gas Minute Ventilation 6.2 7.8 Bedside FiO2 70 % 70 % Blood Gas Tidal Volume 480 400 Blood Gas PEEP 8 10 Bedside Glucose 149 mg/dl Troponin I 5.080 ng/ml Diagnostic Results CHEST ONE VIEW PORTABLE CLINICAL HISTORY: Respiratory symptoms. Lung cancer. COMPARISON STUDY: Chest CT May 20, 2017. FINDINGS: There is no pneumothorax. Innumerable bilateral pulmonary nodules are again noted, including a 6.7 cm right upper lobe mass and a dominant right lower lobe mass which is better depicted on prior CT. A small right pleural effusion is noted. Cardiomediastinal silhouette is stable with stable mediastinal widening and right hilar enlargement due to lymphadenopathy. Right lower lung aeration has likely improved since exam May 20, 2017. Left lung metastases have likely progressed. IMPRESSION: 1. Innumerable bilateral pulmonary nodules consistent with extensive metastatic disease, including a large right lower lobe mass and dominant right upper lobe mass. Suspected interval progression of left lung metastases with interval improvement in right lower lung aeration. 2. Small right pleural effusion. Electronically signed by: Martinez Beltran M.D. 07/29/2017 9:25 AM Dictated Date/Time: 07/29/2017 9:[address] ANGIOGRAM OF THE CHEST CLINICAL HISTORY: Hypoxia. Respiratory failure. COMPARISON STUDY: Chest x-ray dated 07/29/2017, CT scan dated 05/20/2017 TECHNIQUE: Following the IV administration of 93 mL of Optiray-320, CT angiogram of the thorax was performed from the thoracic inlet to the lung bases utilizing the pulmonary embolus protocol. Images are reviewed in the axial, sagittal, and coronal planes. IV contrast was administered without complication. MIP imaging was performed. A dose lowering technique was utilized adhering to the principles of ALARA. CT DOSE: 552.19 mGy.cm FINDINGS: There is increasing bulky mediastinal and hilar lymphadenopathy. There was no evidence of thoracic aortic dilatation. There were no pulmonary artery filling defects to indicate acute pulmonary embolism. There is a persistent small right pleural effusion. There is been interval increase in the size and number of the multiple bilateral pulmonary nodules indicative of progressive metastatic disease. There is a persistent 15 cm right lower lobe mass encasing the right middle and lower lobe pulmonary artery branches. The mediastinal mass/adenopathy obstructs the right mainstem bronchus. There is an endotracheal tube with its tip at the level of the zia. IMPRESSION: 1. The endotracheal tube is positioned at the level of the zia 2. Increasing bulky mediastinal and hilar lymphadenopathy 3. Interval increase in the size and number of the multiple bilateral pulmonary nodules 4. The right mainstem bronchus is obstructed by the mediastinal mass/adenopathy Electronically signed by: Shahbaz You M.D. 07/29/2017 10:13 AM Dictated Date/Time: 07/29/2017 10:06 AM CHEST ONE VIEW PORTABLE HISTORY: 62 years-old Female intubation acute respiratory failure COMPARISON: Chest radiograph 07/29/2017, chest CT 05/20/2017. TECHNIQUE: Supine AP view of the chest. FINDINGS: Cardiac silhouette is again mildly enlarged. Endotracheal tube has been placed which overlies the midline approximately 1.7 cm superior to the level the zia. There are innumerable bilateral pulmonary metastasis, largest of which measures up to 5.4 x 6.2 cm within the right upper lobe. Small right pleural effusion again seen. No pneumothorax. The bones appear grossly intact. Bulky adenopathy also again seen. IMPRESSION: 1. Status post placement of an endotracheal tube which overlies the midline approximately 1.7 cm superior to the zia. 2. Innumerable bilateral pulmonary metastasis redemonstrated with small right pleural effusion. The above report was generated using voice recognition software. It may contain grammatical, syntax or spelling errors. Electronically signed by: Aguila Crane M.D. 07/29/2017 9:57 AM Dictated Date/Time: 07/29/2017 9:53 AM Assessment & Plan [employer] Intubated, ventilatory support Fentanyl DNR with cardiac arrest Hold central access for now CV Elevated trop, likely demand from acute illness Cardiology consulted RESP Ventilatory support with intubation Most recent ABG pH 7.186, CO2 64.4, Po2 85, SatO2 84 ABDO/GI Pantoprazole started NEPHRO JUAN, prerenal 2/2 acute illness IVF, avoid nephrotoxic agents ID Mild leukocytosis of 15 Pancultures pending Started on vanc/levaquin/cefipime, day 1 HEME Heparin TID Resident Physician Supervision Note: Dr. Morelos was resident physician during care of patient. I separately evaluated patient and did history and exam. I discussed the case with the resident and generally agree with the findings and plan. Patient is profoundly hypoxic as well as demonstrating a severe respiratory acidosis. She's had significant progression of her metastatic disease. She has completely obliterated her right lower lobe as well as most of her left middle lobe. There is significant encroachment into the right pulmonary artery by this mass. The patient has a significant cardiomyopathy with an EF of 10-15% . She has been mottled since her arrival in the emergency department. I discussed the patient's prognosis extensively with the and family. At this point she is a DO NOT RESUSCITATE in event of cardiac arrest. In discussing goals of care and how aggressive we wanted to treat her we will continue with IV antibiotics however we will hold off additional invasive procedures. It is clear that the patient is suffering from an end-stage terminal condition without chance of meaningful recovery. In discussions with cardiology as well as oncology they are waiting for additional family members to arrive and then will likely proceed to a comfort/palliative care treatment plan. I have personally spent 120 minutes of critical care time in the direct management of this patient. This is a life/limb threatening event. This includes time spent evaluating patient, direct bedside care, chart review, placing orders, interpretation of diagnostic studies, discussion with consultants, patient, and family members, as well as other required patient management activities. This time is exclusive of all separately billable procedures, and teaching time and separate from and in addition to any other critical care service time. Documented By: Julio Kevin DO Resident Tracking Resident Involvement: Resident Care Provided Care Provided: Adult Hospital Medicine
[2017-07-29] MEDS: CEFEPIME IV 2,000 MG in SYRINGE 7.5 ML IV SCH (21:37)
[2017-07-30] VITALS (12 sets, daily range): BP systolic 79–116; BP diastolic 57–78; PULSE 59–109; TEMP 36.7–36.8; O2SAT 63–100
[2017-07-30] MEDS ORDERED: VANCOMYCIN INJ 750 MG in SODIUM CHLORIDE 0.9% 250ML 250 ML IV ONE ×2
[2017-07-30] MEDS: FENTANYL CITRATE INJ 50 MCG/1 ML 2 ML VIAL IV PRN ×7 (01:05→14:59)
[2017-07-30] MEDS: NSS + 20MEQ KCL 1000ML 1,000 ML IV SCH ×2 (04:29→16:00)
[2017-07-30 05:48] LABS: BASO % 0.1 %; BASO ABS # 0.02 K/uL (0-0.2); HEMOGLOBIN 9.2 g/dL (12.0-16.0); IG# 0.07 K/uL (0.00-0.02); LYMPH % 6.7 %; LYMPH ABS # 0.92 K/uL (1.2-3.4); MEAN CORPUSCULAR HEMOGLOBIN 31.1 pg (25-34); MEAN CORPUSCULAR HGB CONC 31.7 g/dl (32-36); MEAN PLATELET VOLUME 8.6 fL (7.4-10.4); MONO % 8.6 %; MONO ABS # 1.17 K/uL (0.11-0.59); NEUT % 84.1 %; NEUT ABS # 11.46 K/uL (1.4-6.5); PLATELET COUNT 315 K/uL (130-400); RED CELL DISTRIBUTION WIDTH CV 15.7 % (11.5-14.5); RED CELL DISTRIBUTION WIDTH SD 55.1 fL (36.4-46.3); WHITE BLOOD COUNT 13.64 K/uL (4.8-10.8)
[2017-07-30] MEDS: HEPARIN SOD 5000 UNIT/0.5 ML CARP SQ SCH ×2 (06:16→14:00)
[2017-07-30 06:17] LABS: CALCIUM 8.4 mg/dl (8.5-10.1); CREATININE 1.19 mg/dl (0.60-1.20); PHOSPHORUS 4.2 mg/dl (2.5-4.9); POTASSIUM 4.8 mmol/L (3.5-5.1)
--- NOTE | 2017-07-30 08:40 | Progress Note ---
Internal Med Progress Note Date of Service: Jul 30, 2017. Provider Documentation: SUBJECTIVE: Seen and examined at bedside Currently sedated and Intubated Planned to be terminally weaned when able Family at bedside OBJECTIVE: Vital Signs-as noted below Physical Exam: General Appearance:Moderately built and nourished, Sedated and Intubated Head: normocephalic, Atraumatic Eyes: normal inspection, Anicteric Neck: supple, Trachea midline Respiratory/Chest: B/L air entry, coarse breath sounds Cardiovascular: S1, S2, +Tachycardia, No murmur Abdomen/GI:Soft, Non tender, Bowel sounds present Extremities/Musculoskelatal:normal inspection, no edema Neurologic/Psych:Sedated and Intubated Skin: normal color, warm Lab data as noted below. 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 [facility] [place] Depression on bupropion and escitalopram DVT Px: Heparin SQ Code Status: DNR Disposition: Planned to be terminally weaned Vital Signs: Date Time Temp Pulse Resp B/P (MAP) Pulse Ox O2 Delivery O2 Flow Rate FiO2 07/30/17 07:22 70 07/30/17 06:00 100 18 110/70 (82) 90 07/30/17 06:00 100 18 110/70 (83) 90 Mechanical Ventilator 70 07/30/17 05:15 70 07/30/17 05:00 101 20 94/71 (75) 89 07/30/17 04:00 Mechanical Ventilator 70 07/30/17 04:00 70 07/30/17 04:00 103 20 116/71 (90) 90 07/30/17 04:00 36.7 103 20 116/71 (86) 90 Mechanical Ventilator 70 07/30/17 03:00 101 20 114/71 (92) 92 07/30/17 02:06 70 07/30/17 02:00 101 19 113/78 (85) 90 1/18/18 02:00 101 19 113/78 (90) 90 Mechanical Ventilator 70 18 01:00 109 29 87 18 00:00 36.8 102 20 116/74 (88) 92 Mechanical Ventilator 70 18 00:00 36.8 102 20 116/74 (84) 92 18 00:00 102 20 116/74 (84) 92 18 23:59 Mechanical Ventilator 70 07/29/17 23:59 70 18 23:15 70 18 23:00 99 19 119/77 (96) 93 07/29/17 22:00 100 19 90/66 (71) 92 07/29/17 21:44 103 24 123/88 (102) 92 07/29/17 21:30 101 22 115/88 (99) 93 18 21:00 100 18 115/74 (77) 93 07/29/17 20:30 98 18 106/85 (90) 94 07/29/17 20:18 70 07/29/17 20:00 100 22 111/73 (82) 93 07/29/17 20:00 93 Mechanical Ventilator 70 07/29/17 20:00 70 18 20:00 36.8 07/29/17 19:30 103 24 118/85 (90) 93 18 19:00 99 21 112/86 (99) 93 18 18:30 96 19 114/72 (79) 94 18 18:00 98 22 98/72 (77) 94 18 17:53 70 18 17:31 99 21 118/71 (100) 93 18 17:01 99 20 81/58 (65) 93 18 17:01 99 20 81/58 (65) 93 18 17:00 99 20 93 18 16:30 98 20 104/82 (86) 93 18 16:00 97 20 93/76 (85) 92 18 16:00 70 07/29/18 16:00 36.8 18 16:00 93 Mechanical Ventilator 70 18 15:30 98 21 111/82 (87) 93 1/17/18 15:00 99 20 109/73 (76) 93 07/29/17 14:37 70 07/29/17 14:00 36.8 101 12 101/91 (94) 90 Mechanical Ventilator 07/29/17 12:10 70 07/29/17 11:15 104 12 115/76 93 07/29/17 11:00 106 12 118/85 92 07/29/17 10:53 70 07/29/17 10:45 105 12 116/77 90 07/29/17 10:44 105 116/77 90 Mechanical Ventilator 60 07/29/17 10:35 90 Mechanical Ventilator 15.0 60 07/29/17 10:30 107 129/76 91 Mechanical Ventilator 60 07/29/17 10:07 107 18 125/77 97 Mechanical Ventilator 07/29/17 09:45 60 07/29/17 09:38 100 07/29/17 09:31 122 26 137/111 94 CPAP 07/29/17 09:23 122 30 111/85 95 BiPAP 40 07/29/17 09:21 Nasal Cannula 07/29/17 09:20 122 34 129/114 97 BiPAP 07/29/17 09:20 122 37 94 BiPAP/CPAP 40 07/29/17 09:15 122 94 40 07/29/17 09:15 121 Lab Results: Results Past 24 Hours Test 07/29/17 09:19 07/29/17 09:28 07/29/17 09:30 07/29/17 09:32 Range/Units White Blood Count 15.41 4.8-10.8 K/uL Red Blood Count 3.13 4.2-5.4 M/uL Hemoglobin 9.7 12.0-16.0 g/dL Hematocrit 30.6 37-47 % Mean Corpuscular Volume 97.8 80-100 fL Mean Corpuscular Hemoglobin 31.0 25-34 pg Mean Corpuscular Hemoglobin Concent 31.7 32-36 g/dl Platelet Count 446 130-400 K/uL Mean Platelet Volume 8.9 7.4-10.4 fL RDW Standard Deviation 55.2 36.4-46.3 fL RDW Coefficient of Variation 15.6 11.5-14.5 % Neutrophils % (Manual) 69.6 % Lymphocytes % (Manual) 25.0 % Monocytes % (Manual) 2.7 % Eosinophils % (Manual) 2.7 % Neutrophils # (Manual) 10.73 1.4-6.5 K/uL Total Absolute Neutrophils 10.73 1.4-6.5 K/uL Lymphocytes # (Manual) 3.85 1.2-3.4 K/uL Total Absolute Lymphocytes 3.85 1.2-3.4 K/uL Monocytes # (Manual) 0.42 0.11-0.59 K/uL Eosinophils # (Manual) 0.42 0-0.5 K/uL Anisocytosis PRESENT Prothrombin Time 12.0 9.0-12.0 SECONDS Prothromb Time International Ratio 1.1 0.9-1.1 Activated Partial Thromboplast Time 27.5 21.0-31.0 SECONDS Partial Thromboplastin Ratio 1.1 Sodium Level 134 136-145 mmol/L Potassium Level 3.7 3.5-5.1 mmol/L Chloride Level 100 98-107 mmol/L Carbon Dioxide Level 22 21-32 mmol/L Anion Gap 12.0 22.0 16-25 mmol/L Blood Urea Nitrogen 16 7-18 mg/dl Creatinine 1.44 0.60-1.20 mg/dl Estimated GFR () 45.0 Estimated GFR (Non- 38.8 BUN/Creatinine Ratio 10.9 10-20 Random Glucose 331 70-99 mg/dl Calcium Level 8.9 8.5-10.1 mg/dl Magnesium Level 1.8 1.8-2.4 mg/dl Total Bilirubin 0.3 0.2-1 mg/dl Direct Bilirubin < 0.1 0-0.2 mg/dl Aspartate Amino Transf (AST/SGOT) 24 15-37 U/L Alanine Aminotransferase (ALT/SGPT) 30 12-78 U/L Alkaline Phosphatase 90 45-117 U/L Total Creatine Kinase 85 26-192 U/L Creatine Kinase MB 3.7 0.5-3.6 ng/ml Creatine Kinase MB Ratio 4.4 0-3.0 Troponin I 0.392 0-0.045 ng/ml Total Protein 7.6 6.4-8.2 gm/dl Albumin 2.8 3.4-5.0 gm/dl Lipase 91 73-393 U/L Beta-Hydroxybutyric Acid 1.48 0.2-2.81 mg/dL Venous Blood pH 7.17 7.36-7.41 Venous Blood Partial Pressure CO2 57 38.0-50.0 mmHg Venous Blood Partial Pressure O2 41 mmHg Venous Blood HCO3 20 mmol/L Venous Blood Oxygen Saturation 62.1 % Venous Blood Base Excess -8.2 mEq/L Bedside Hemoglobin 9.9 12.0-16.0 g/dl Bedside Hematocrit 29 37-47 % Bedside Sodium 139 135-144 mEq/L Bedside Potassium 3.9 3.3-5.0 mEq/L Bedside Chloride 100 101-112 mEq/L Bedside Total CO2 22 24-31 mEq/l Bedside Blood Urea Nitrogen 17 7-18 mg/dl Bedside Creatinine 1.2 0.6-1.3 mg/dl Bedside Glucose (other) 353 70-99 mg/dl Bedside Ionized Calcium (Lynsey) 1.19 1.12-1.32 mmol/l Bedside Troponin I 0.310 0-0.045 ng/ml Test 07/29/17 09:34 07/29/17 10:09 07/29/17 11:00 07/29/17 12:01 Range/Units Bedside Lactic Acid Venous 8.18 0.90-1.70 mmol/L Influenza Type A Antigen Neg for Influ A NEG Influenza Type B Antigen Neg for Influ B NEG Urine Color YELLOW Urine Appearance CLEAR CLEAR Urine pH 5.5 4.5-7.5 Urine Specific [place] 1.025 1.000-1.030 Urine Protein NEG NEG Urine Glucose (UA) TRACE NEG Urine Ketones NEG NEG Urine Occult Blood 1+ NEG Urine Nitrite NEG NEG Urine Bilirubin NEG NEG Urine Urobilinogen NEG NEG Urine Leukocyte Esterase NEG NEG Urine WBC (Auto) 1-5 0-5 /hpf Urine RBC (Auto) 0-4 0-4 /hpf Urine Hyaline Casts (Auto) 5-10 0-5 /lpf Urine Epithelial Cells (Auto) >30 0-5 /lpf Urine Bacteria (Auto) NEG NEG Bedside Glucose 285 70-90 mg/dl Test 07/29/17 12:36 07/29/17 14:22 07/29/17 15:23 07/29/17 17:53 Range/Units Lactic Acid Level 2.8 0.4-2.0 mmol/L Troponin I 4.680 0-0.045 ng/ml Blood Gas Sample Site R Radial R Radial Bedside Blood Gas pH (LAB) 7.12 7.19 7.35-7.45 Bedside Blood Gas pCO2 (LAB) 73 64 35-46 mmHg Bedside Blood Gas pO2 (LAB) 86 84 80-95 mmHg Bedside Blood Gas HCO3 (LAB) 24 24 19-24 meq/L Bedside Blood Gas Total CO2 26 26 24-31 mEq/l Bedside Blood Gas Base Excess (LAB) -6.0 -4.0 -9-1.8 meq/L Bedside Blood Gas O2 Saturation 92.0 93.0 90-95 % Rinku Test Pass Pass Oxygen Delivery Device Ventilator Ventilator Bedside Oxygen Rate (breaths/min) 13 20 Blood Gas Minute Ventilation 6.2 7.8 Bedside FiO2 70 70 % Blood Gas Tidal Volume 480 400 Blood Gas PEEP 8 10 Bedside Glucose 149 70-90 mg/dl Test 07/29/17 18:53 07/29/17 21:02 07/30/17 05:39 07/30/17 05:41 Range/Units Troponin I 5.080 0-0.045 ng/ml Random Vancomycin Level 23.8 mcg/ml White Blood Count 13.64 4.8-10.8 K/uL Red Blood Count 2.96 4.2-5.4 M/uL Hemoglobin 9.2 12.0-16.0 g/dL Hematocrit 29.0 37-47 % Mean Corpuscular Volume 98.0 80-100 fL Mean Corpuscular Hemoglobin 31.1 25-34 pg Mean Corpuscular Hemoglobin Concent 31.7 32-36 g/dl Platelet Count 315 130-400 K/uL Mean Platelet Volume 8.6 7.4-10.4 fL Neutrophils (%) (Auto) 84.1 % Lymphocytes (%) (Auto) 6.7 % Monocytes (%) (Auto) 8.6 % Eosinophils (%) (Auto) 0.0 % Basophils (%) (Auto) 0.1 % Neutrophils # (Auto) 11.46 1.4-6.5 K/uL Lymphocytes # (Auto) 0.92 1.2-3.4 K/uL Monocytes # (Auto) 1.17 0.11-0.59 K/uL Eosinophils # (Auto) 0.00 0-0.5 K/uL Basophils # (Auto) 0.02 0-0.2 K/uL RDW Standard Deviation 55.1 36.4-46.3 fL RDW Coefficient of Variation 15.7 11.5-14.5 % Immature Granulocyte % (Auto) 0.5 % Immature Granulocyte # (Auto) 0.07 0.00-0.02 K/uL Sodium Level 139 136-145 mmol/L Potassium Level 4.8 3.5-5.1 mmol/L Chloride Level 108 98-107 mmol/L Carbon Dioxide Level 25 21-32 mmol/L Anion Gap 6.0 3-11 mmol/L Blood Urea Nitrogen 19 7-18 mg/dl Creatinine 1.19 0.60-1.20 mg/dl Est Creatinine Clear Calc Drug Dose 46.1 ml/min Estimated GFR () 56.7 Estimated GFR (Non- 48.9 BUN/Creatinine Ratio 15.9 10-20 Random Glucose 117 70-99 mg/dl Calcium Level 8.4 8.5-10.1 mg/dl Phosphorus Level 4.2 2.5-4.9 mg/dl Magnesium Level 1.8 1.8-2.4 mg/dl Bedside Glucose 117 70-90 mg/dl Microbiology Results 07/29/17 Blood Culture, Received Pending 07/29/17 Blood Culture, Received Pending 07/29/17 MRSA DNA Surveillance Screen - Final, Complete Specimen Negative for MRSA by DNA Probe
[2017-07-30] MEDS ORDERED: PANTOprazole SOD 40 MG TAB PO SCH (09:00)
[2017-07-30] MEDS ORDERED: LANSOPRAZOLE SOLUTAB 30 MG PO SCH (09:00)
[2017-07-30] MEDS ORDERED: ASPIRIN 81 MG CHEW PO ONE (09:00)
[2017-07-30] MEDS: MIDAZOLAM 125MG/250ML D5W 250 ML IV PRN (09:54)
[2017-07-30] MEDS: CEFEPIME IV 2,000 MG in SYRINGE 7.5 ML IV SCH (10:20)
[2017-07-30] MEDS: PANTOprazole INJ 40 MG in SYRINGE 0 ML IV SCH (10:21)
--- NOTE | 2017-07-30 10:58 | Palliative Care Consultation ---
Consultation Date of Consultation: Jul 30, 2017. Requesting Physician: Dr. Kevin Attending Physician: Dr. Strickland Reason for Consultation: Goals of care History of Present Illness This 62 year old female patient with PMH stage IV adenocarcinoma of the lung and depression, presented to the hospital yesterday with respiratory arrest. CTA chest shows increasing bulky mediastinal and hilar lymphadenopathy, interval increase in the size and number of the multiple bilateral pulmonary nodules, obstructed right mainstem bronchus by the mediastinal mass/adenopathy. She has profound stress cardiomyopathy with EF 15% on echocardiogram. Patient is with end-stage terminal condition without meaningful chance of recovery. Goals of care are comfort and terminal extubation today. Palliative care is consulted to add support for family and for comfort measures. I met with the patients entire family, including Ed, son and daughter, two sisters, grandson, cousin and her , and family friend, in room 109. Patient is intubated and sedated. Family confirmed that they understand patient is terminal and that patient would not want to have her life prolonged in this state. They are aware of her medical issues including the cardiomyopathy and obstructed right bronchus. Their wish is to have patient terminally extubated and for her to experience as few symptoms as possible, even if that means sedation. They are just waiting for additional family members from out of town to arrive. They will let the medical team know when they are ready to proceed with extubation. Past Medical/Surgical History Medical History: Stage IV progressive mucinoid adenocarcinoma of the lung Depression Social History Smoking Status: Former Smoker History of Alcohol Use: Yes (occasionally) Marital Status: Review of Systems unable to obtain due to sedation/obtundation Allergies Coded Allergies: Erythromycin (Verified Adverse Reaction, Unknown, NAUSEA/VOMITING, 07/29/17 ) Medications Current Inpatient Medications Medications (Trade) Dose Ordered Sig/Ankit Route Start Time Stop Time Status Last Admin Dose Admin Ioversol (Optiray 320) 125 ml UD PRN IV 07/29/17 09:45 08/02/17 09:44 Miscellaneous Information ([facility] Protocol For Hyperglycemia) 1 ea PRN PRN N/A 07/29/17 10:45 07/31/17 10:44 Cefepime HCl (Consult) 1 ea UD PRN N/A 07/29/17 14:15 08/28/17 14:14 Levofloxacin (Consult) 1 ea UD PRN N/A 07/29/17 14:15 08/28/17 14:14 Miscellaneous Information (Consult) 1 ea UD PRN N/A 07/29/17 14:15 08/28/17 14:14 Fentanyl Citrate (Fentanyl Inj) 100 mcg Q2H PRN IV 07/29/17 14:15 08/12/17 14:14 07/30/17 09:55 100 MCG Heparin Sodium (Porcine) (Heparin Sq 5000 Unit/0.5ml) 5,000 unit Q8 SQ 07/29/17 14:15 08/28/17 14:14 07/30/17 06:16 5,000 UNIT Potassium Chloride/Sodium Chloride 1,000 ml @ 80 mls/hr [id number] IV 07/29/17 15:00 08/28/17 14:59 07/30/17 04:29 80 MLS/HR Levalbuterol (Xopenex 1.25MG/ 3ML Neb) 1.25 mg Q6H PRN INH 07/29/17 14:15 08/28/17 14:14 Cefepime HCl 2000 mg/Syringe 20 ml @ 5 mls/min Q12@1000,2200 IV 07/29/17 22:00 08/05/17 21:59 07/30/17 10:20 5 MLS/MIN Levofloxacin 750 mg/Prmx 150 ml @ 100 mls/hr Q2D@0900 IV 07/31/17 09:00 08/05/17 08:59 Midazolam HCl 250 ml @ 0 mls/hr Q0M PRN IV 07/29/17 14:45 08/28/17 14:44 07/30/17 09:54 20 MLS/HR Pantoprazole Sodium 40 mg/ Syringe 10 ml @ 5 mls/min DAILY@11 IV 07/29/17 16:00 08/28/17 15:59 07/30/17 10:21 5 MLS/MIN Physical Exam Date Time Temp Pulse Resp B/P (MAP) Pulse Ox O2 Delivery O2 Flow Rate FiO2 07/30/17 10:00 96 18 79/57 (64) 97 Mechanical Ventilator 90 07/30/17 08:00 36.7 99 19 91/57 (68) 100 Mechanical Ventilator 98 07/30/17 07:22 70 07/30/17 06:00 100 18 110/70 (82) 90 07/30/17 06:00 100 18 110/70 (83) 90 Mechanical Ventilator 70 07/30/17 05:15 70 07/30/17 05:00 101 20 94/71 (75) 89 18 04:00 Mechanical Ventilator 70 07/30/17 04:00 70 07/30/17 04:00 103 20 116/71 (90) 90 07/30/17 04:00 36.7 103 20 116/71 (86) 90 Mechanical Ventilator 70 07/30/17 03:00 101 20 114/71 (92) 92 07/30/17 02:06 70 07/30/17 02:00 101 19 113/78 (85) 90 07/30/17 02:00 101 19 113/78 (90) 90 Mechanical Ventilator 70 07/30/17 01:00 109 29 87 07/30/17 00:00 36.8 102 20 116/74 (88) 92 Mechanical Ventilator 70 07/30/17 00:00 36.8 102 20 116/74 (84) 92 07/30/17 00:00 102 20 116/74 (84) 92 18 23:59 Mechanical Ventilator 70 07/29/17 23:59 70 07/29/17 23:15 70 07/29/17 23:00 99 19 119/77 (96) 93 07/29/17 22:00 100 19 90/66 (71) 92 07/29/17 21:44 103 24 123/88 (102) 92 18 21:30 101 22 115/88 (99) 93 18 21:00 100 18 115/74 (77) 93 18 20:30 98 18 106/85 (90) 94 18 20:18 70 18 20:00 100 22 111/73 (82) 93 07/29/17 20:00 93 Mechanical Ventilator 70 07/29/17 20:00 70 18 20:00 36.8 18 19:30 103 24 118/85 (90) 93 18 19:00 99 21 112/86 (99) 93 07/29/17 18:30 96 19 114/72 (79) 94 07/29/17 18:00 98 22 98/72 (77) 94 1/17/18 17:53 70 18 17:31 99 21 118/71 (100) 93 07/29/17 17:01 99 20 81/58 (65) 93 07/29/17 17:01 99 20 81/58 (65) 93 07/29/17 17:00 99 20 93 07/29/17 16:30 98 20 104/82 (86) 93 07/29/17 16:00 97 20 93/76 (85) 92 07/29/17 16:00 70 07/29/17 16:00 36.8 07/29/17 16:00 93 Mechanical Ventilator 70 07/29/17 15:30 98 21 111/82 (87) 93 07/29/17 15:00 99 20 109/73 (76) 93 07/29/17 14:37 70 07/29/17 14:00 36.8 101 12 101/91 (94) 90 Mechanical Ventilator 07/29/17 12:10 70 07/29/17 11:15 104 12 115/76 93 07/29/17 11:00 106 12 118/85 92 07/29/17 10:53 70 07/29/17 10:45 105 12 116/77 90 07/29/17 10:44 105 116/77 90 Mechanical Ventilator 60 07/29/17 10:35 90 Mechanical Ventilator 15.0 60 General Appearance: no apparent distress ENT: + pertinent finding (ETT present) Neck: supple, no JVD Respiratory: no respiratory distress, no accessory muscle use, + pertinent finding (on mechanical ventilator) Cardiovascular: regular rate, rhythm, + normal peripheral pulses Abdomen: + pertinent finding (OGT present) Neurologic/Psychiatric: + pertinent finding (obtunded/sedated) Skin: normal color Laboratory Results Last 24 Hours Test 07/29/17 11:00 07/29/17 12:01 07/29/17 12:36 07/29/17 14:22 Urine Color YELLOW Urine Appearance CLEAR Urine pH 5.5 Urine Specific [place] 1.025 Urine Protein NEG Urine Glucose (UA) TRACE Urine Ketones NEG Urine Occult Blood 1+ Urine Nitrite NEG Urine Bilirubin NEG Urine Urobilinogen NEG Urine Leukocyte Esterase NEG Urine WBC (Auto) 1-5 /hpf Urine RBC (Auto) 0-4 /hpf Urine Hyaline Casts (Auto) 5-10 /lpf Urine Epithelial Cells (Auto) >30 /lpf Urine Bacteria (Auto) NEG Bedside Glucose 285 mg/dl Lactic Acid Level 2.8 mmol/L Troponin I 4.680 ng/ml Blood Gas Sample Site R Radial Bedside Blood Gas pH (LAB) 7.12 Bedside Blood Gas pCO2 (LAB) 73 mmHg Bedside Blood Gas pO2 (LAB) 86 mmHg Bedside Blood Gas HCO3 (LAB) 24 meq/L Bedside Blood Gas Total CO2 26 mEq/l Bedside Blood Gas Base Excess (LAB) -6.0 meq/L Bedside Blood Gas O2 Saturation 92.0 % Rinku Test Pass Oxygen Delivery Device Ventilator Bedside Oxygen Rate (breaths/min) 13 Blood Gas Minute Ventilation 6.2 Bedside FiO2 70 % Blood Gas Tidal Volume 480 Blood Gas PEEP 8 Test 07/29/17 15:23 07/29/17 17:53 07/29/17 18:53 07/29/17 21:02 Blood Gas Sample Site R Radial Bedside Blood Gas pH (LAB) 7.19 Bedside Blood Gas pCO2 (LAB) 64 mmHg Bedside Blood Gas pO2 (LAB) 84 mmHg Bedside Blood Gas HCO3 (LAB) 24 meq/L Bedside Blood Gas Total CO2 26 mEq/l Bedside Blood Gas Base Excess (LAB) -4.0 meq/L Bedside Blood Gas O2 Saturation 93.0 % Rinku Test Pass Oxygen Delivery Device Ventilator Bedside Oxygen Rate (breaths/min) 20 Blood Gas Minute Ventilation 7.8 Bedside FiO2 70 % Blood Gas Tidal Volume 400 Blood Gas PEEP 10 Bedside Glucose 149 mg/dl Troponin I 5.080 ng/ml Random Vancomycin Level 23.8 mcg/ml Test 07/30/17 05:39 07/30/17 05:41 White Blood Count 13.64 K/uL Red Blood Count 2.96 M/uL Hemoglobin 9.2 g/dL Hematocrit 29.0 % Mean Corpuscular Volume 98.0 fL Mean Corpuscular Hemoglobin 31.1 pg Mean Corpuscular Hemoglobin Concent 31.7 g/dl Platelet Count 315 K/uL Mean Platelet Volume 8.6 fL Neutrophils (%) (Auto) 84.1 % Lymphocytes (%) (Auto) 6.7 % Monocytes (%) (Auto) 8.6 % Eosinophils (%) (Auto) 0.0 % Basophils (%) (Auto) 0.1 % Neutrophils # (Auto) 11.46 K/uL Lymphocytes # (Auto) 0.92 K/uL Monocytes # (Auto) 1.17 K/uL Eosinophils # (Auto) 0.00 K/uL Basophils # (Auto) 0.02 K/uL RDW Standard Deviation 55.1 fL RDW Coefficient of Variation 15.7 % Immature Granulocyte % (Auto) 0.5 % Immature Granulocyte # (Auto) 0.07 K/uL Sodium Level 139 mmol/L Potassium Level 4.8 mmol/L Chloride Level 108 mmol/L Carbon Dioxide Level 25 mmol/L Anion Gap 6.0 mmol/L Blood Urea Nitrogen 19 mg/dl Creatinine 1.19 mg/dl Est Creatinine Clear Calc Drug Dose 46.1 ml/min Estimated GFR () 56.7 Estimated GFR (Non- 48.9 BUN/Creatinine Ratio 15.9 Random Glucose 117 mg/dl Calcium Level 8.4 mg/dl Phosphorus Level 4.2 mg/dl Magnesium Level 1.8 mg/dl Bedside Glucose 117 mg/dl Assessment & Plan Palliative Performance Scale: 10 % Problem list: Cough/dyspnea/SOB Respiratory failure Stage IV adenocarcinoma of lung- progressive and worse on CTA chest. Has 15cm RLL mass encasing pulmonary artery branches and obstructing the right main bronchus. Cardiomyopathy, EF 15% Goals of care Palliative care recs: discussed with patient's , two children, multiple other family members, Dr. Kevin, and Dr. Strickland. -Patient is level 5/DO NOT RESUSCITATE. -Plan is to terminally extubate and convert to comfort measures only once all family has arrived. -The family verbalized understanding that this is a terminal situation and patient has no hope of meaningful recovery. The patient's and son stated that "she never wanted to be on tubes and machines." -Once family is ready for extubation, would continue the versed infusion. -Has required 800mcg Fentanyl since admission, not even 24 hours. Recommend starting morphine infusion at 4mg/hr, titrate by 2mg/hr Q15min PRN pain or SOB. -I gave support and education to patient's family. They denied any further questions/concerns. They will let us know when we're ready to extubate. Thank you kindly for this consult. I will follow as needed.
[2017-07-30] MEDS ORDERED: VANCOMYCIN INJ 1,000 MG in SODIUM CHLORIDE 0.9% 250ML 250 ML IV STA (12:19)
--- NOTE | 2017-07-30 12:32 | Pharmacy Progress Note ---
Pharmacy Antibiotic Prog Note Date of Service Jul 30, 2017. Subjective The patient is currently receiving vancomycin prn levels The patient is currently on day # 2 of vancomycin IV therapy. Objective Height (Feet): 5 Height (Inches): 3.00 Weight (Kilograms): 66.600 Lab Results (24hrs): Test 07/29/17 12:36 07/29/17 14:22 07/29/17 15:23 07/29/17 17:53 Lactic Acid Level 2.8 mmol/L (0.4-2.0) Troponin I 4.680 ng/ml (0-0.045) Blood Gas Sample Site R Radial R Radial Bedside Blood Gas pH (LAB) 7.12 (7.35-7.45) 7.19 (7.35-7.45) Bedside Blood Gas pCO2 (LAB) 73 mmHg (35-46) 64 mmHg (35-46) Bedside Blood Gas pO2 (LAB) 86 mmHg (80-95) 84 mmHg (80-95) Bedside Blood Gas HCO3 (LAB) 24 meq/L (19-24) 24 meq/L (19-24) Bedside Blood Gas Total CO2 26 mEq/l (24-31) 26 mEq/l (24-31) Bedside Blood Gas Base Excess (LAB) -6.0 meq/L (-9-1.8) -4.0 meq/L (-9-1.8) Bedside Blood Gas O2 Saturation 92.0 % (90-95) 93.0 % (90-95) Rinku Test Pass Pass Oxygen Delivery Device Ventilator Ventilator Bedside Oxygen Rate (breaths/min) 13 20 Blood Gas Minute Ventilation 6.2 7.8 Bedside FiO2 70 % 70 % Blood Gas Tidal Volume 480 400 Blood Gas PEEP 8 10 Bedside Glucose 149 mg/dl (70-90) Test 07/29/17 18:53 07/29/17 21:02 07/30/17 05:39 07/30/17 05:41 Troponin I 5.080 ng/ml (0-0.045) Random Vancomycin Level 23.8 mcg/ml White Blood Count 13.64 K/uL (4.8-10.8) Red Blood Count 2.96 M/uL (4.2-5.4) Hemoglobin 9.2 g/dL (12.0-16.0) Hematocrit 29.0 % (37-47) Mean Corpuscular Volume 98.0 fL (80-100) Mean Corpuscular Hemoglobin 31.1 pg (25-34) Mean Corpuscular Hemoglobin Concent 31.7 g/dl (32-36) Platelet Count 315 K/uL (130-400) Mean Platelet Volume 8.6 fL (7.4-10.4) Neutrophils (%) (Auto) 84.1 % Lymphocytes (%) (Auto) 6.7 % Monocytes (%) (Auto) 8.6 % Eosinophils (%) (Auto) 0.0 % Basophils (%) (Auto) 0.1 % Neutrophils # (Auto) 11.46 K/uL (1.4-6.5) Lymphocytes # (Auto) 0.92 K/uL (1.2-3.4) Monocytes # (Auto) 1.17 K/uL (0.11-0.59) Eosinophils # (Auto) 0.00 K/uL (0-0.5) Basophils # (Auto) 0.02 K/uL (0-0.2) RDW Standard Deviation 55.1 fL (36.4-46.3) RDW Coefficient of Variation 15.7 % (11.5-14.5) Immature Granulocyte % (Auto) 0.5 % Immature Granulocyte # (Auto) 0.07 K/uL (0.00-0.02) Sodium Level 139 mmol/L (136-145) Potassium Level 4.8 mmol/L (3.5-5.1) Chloride Level 108 mmol/L (98-107) Carbon Dioxide Level 25 mmol/L (21-32) Anion Gap 6.0 mmol/L (3-11) Blood Urea Nitrogen 19 mg/dl (7-18) Creatinine 1.19 mg/dl (0.60-1.20) Est Creatinine Clear Calc Drug Dose 46.1 ml/min Estimated GFR () 56.7 Estimated GFR (Non- 48.9 BUN/Creatinine Ratio 15.9 (10-20) Random Glucose 117 mg/dl (70-99) Calcium Level 8.4 mg/dl (8.5-10.1) Phosphorus Level 4.2 mg/dl (2.5-4.9) Magnesium Level 1.8 mg/dl (1.8-2.4) Bedside Glucose 117 mg/dl (70-90) Assessment & Plan Assessment * 62 yo F with lung CA admitted 07/29 w respiratory failure. Intubated in ED and transferred to ICU. On cefepime, levofloxacin, and vancomycin. * SCr trending down, but not yet at baseline. CrCL ~ 46 mL/min * Family meeting to occur later today to discuss goals of care and whether comfort measures only will be implemented. * OK to schedule vancomycin at this time 2nd improving renal function - will continue at 15 mg/kg dosed at less than estimated t1/2 of 15 hr 2nd improving renal function and GPC in 1/2 blood cultures * Trough prior to 3rd dose of current regimen - will be before steady state but want to ensure accumulation is not occurring Plan * Vancomycin 1000 mg IV q12h * Trough 07/31 @ 1130 Pharmacy will continue to follow and will adjust dose/frequency as necessary. Thank you
--- NOTE | 2017-07-30 13:37 | Hematology/Oncology Prog Note ---
Hematology/Onc Progress Note Date of Service Jul 30, 2017. Diagnoses Progressive non-small cell lung carcinoma Respiratory failure secondary to progressive non-small cell lung Medications Medications Administered Medications (Trade) Dose Ordered Sig/Ankit Route Start Time Stop Time Status Last Admin Dose Admin Furosemide (Lasix Inj) 40 mg NOW STAT IV 07/29/17 09:13 07/29/17 09:14 DC 07/29/17 09:18 40 MG Magnesium Sulfate (Magnesium Sulfate) 1 gm NOW STAT IV 07/29/17 09:13 07/29/17 09:14 DC 07/29/17 09:18 1 GM Nitroglycerin/ Dextrose 500 ml @ 0 mls/hr Q0M STAT IV 07/29/17 09:16 07/29/17 09:17 DC 07/29/17 09:24 3 MLS/HR Albuterol/ Ipratropium (Duoneb) 12 ml ONE ONCE INH 07/29/17 09:30 07/29/17 09:31 DC 07/29/17 09:30 12 ML Miscellaneous (Rapid Sequence Induction Bag) 1 ea STK-MED ONCE N/A 07/29/17 09:32 07/29/17 09:33 DC 07/29/17 09:37 1 EA Succinylcholine Chloride (Quelicin Inj) 150 mg NOW STAT IV 07/29/17 09:33 07/29/17 09:34 DC 07/29/17 09:44 150 MG Etomidate (Amidate Inj) 20 mg NOW ONCE IV 07/29/17 09:45 07/29/17 09:46 DC 07/29/17 09:44 20 MG Propofol (Diprivan Iv Emulsion 100ml Vial) 1 dose STK-MED ONCE IV 07/29/17 09:35 07/29/17 09:36 DC 07/29/17 09:43 1 DOSE Vecuronium Mcnabb (Vecuronium Mcnabb Inj) 10 mg NOW STAT IV 07/29/17 09:40 07/29/17 09:41 DC 07/29/17 09:46 10 MG Cefepime HCl 2000 mg/Dextrose 122 ml @ 200 mls/hr NOW STAT IV 07/29/17 09:42 07/29/17 10:18 DC 07/29/17 10:23 200 MLS/HR Levofloxacin (Levaquin / D5W) 750 mg NOW STAT IV 07/29/17 09:42 07/29/17 09:44 DC 07/29/17 10:25 750 MG Vancomycin HCl (Vancomycin 1gm/ 270ml Nss) 1 gm NOW STAT IV 07/29/17 09:42 07/29/17 09:44 DC 07/29/17 10:32 1 GM Sodium Chloride 1,000 ml @ 999 mls/hr Q1H1M STAT IV 07/29/17 10:06 07/29/17 11:06 DC 07/29/17 10:23 999 MLS/HR Midazolam HCl (Versed Inj) 2 mg Q1H PRN IV 07/29/17 14:15 07/29/17 14:39 DC 07/29/17 14:29 2 MG Fentanyl Citrate (Fentanyl Inj) 100 mcg Q2H PRN IV 07/29/17 14:15 08/12/17 14:14 07/30/17 12:47 100 MCG Heparin Sodium (Porcine) (Heparin Sq 5000 Unit/0.5ml) 5,000 unit Q8 SQ 07/29/17 14:15 08/28/17 14:14 07/30/17 06:16 5,000 UNIT Potassium Chloride/Sodium Chloride 1,000 ml @ 80 mls/hr [id number] IV 07/29/17 15:00 08/28/17 14:59 07/30/17 04:29 80 MLS/HR Cefepime HCl 2000 mg/Syringe 20 ml @ 5 mls/min Q12@1000,2200 IV 07/29/17 22:00 08/05/17 21:59 07/30/17 10:20 5 MLS/MIN Vancomycin HCl 750 mg/Sodium Chloride 265 ml @ 125 mls/hr TODAY@1500 ONCE IV 07/29/17 15:00 07/29/17 17:07 DC 07/29/17 15:17 125 MLS/HR Midazolam HCl 250 ml @ 0 mls/hr Q0M PRN IV 07/29/17 14:45 08/28/17 14:44 07/30/17 09:54 20 MLS/HR Pantoprazole Sodium 40 mg/ Syringe 10 ml @ 5 mls/min DAILY@11 IV 07/29/17 16:00 08/28/17 15:59 07/30/17 10:21 5 MLS/MIN Vancomycin HCl 750 mg/Sodium Chloride 265 ml @ 125 mls/hr 0000 ONCE IV 07/30/17 00:00 07/30/17 02:07 DC 07/29/17 23:36 125 MLS/HR Subjective Family at bedside. Patient remains intubated. Patient is being giving appropriate meds for comfort measures Review of Systems: Unable to obtain Vital Signs Vital Signs Past 12 Hours Date Time Temp Pulse Resp B/P (MAP) Pulse Ox O2 Delivery O2 Flow Rate FiO2 07/30/17 10:00 96 18 79/57 (64) 97 Mechanical Ventilator 90 07/30/17 08:00 36.7 99 19 91/57 (68) 100 Mechanical Ventilator 98 07/30/17 08:00 Mechanical Ventilator 70 07/30/17 08:00 70 07/30/17 07:22 70 07/30/17 06:00 100 18 110/70 (82) 90 07/30/17 06:00 100 18 110/70 (83) 90 Mechanical Ventilator 70 07/30/17 05:15 70 07/30/17 05:00 101 20 94/71 (75) 89 07/30/17 04:00 Mechanical Ventilator 70 07/30/17 04:00 70 07/30/17 04:00 103 20 116/71 (90) 90 07/30/17 04:00 36.7 103 20 116/71 (86) 90 Mechanical Ventilator 70 07/30/17 03:00 101 20 114/71 (92) 92 07/30/17 02:06 70 07/30/17 02:00 101 19 113/78 (85) 90 07/30/17 02:00 101 19 113/78 (90) 90 Mechanical Ventilator 70 Physical Exam Patient is intubated Eyes: Eyes are MEE EOMI without conjuctival erythema or icterus. ENT: External examination was negative for masses. Neck: Negative for masses or palpable thyromegaly Respiratory: Lung sounds were positive for bilateral rales and rhonchi Cardiovascular: Heart was RRR without significant murmur, gallops aoe rubs Gastrointestinal: No palpable hepatic or splenomegaly. The abdomen was soft with normal bowel sounds. Lymphatic system: there was no palpable peripheral lymphadenopathy Musculoskeletal System: The musculoskeletal system seemed concordant with age. Skin: The skin was negative for jaundice. Laboratory Last 24 Hours Test 07/29/17 14:22 07/29/17 15:23 07/29/17 17:53 07/29/17 18:53 Blood Gas Sample Site R Radial R Radial Bedside Blood Gas pH (LAB) 7.12 7.19 Bedside Blood Gas pCO2 (LAB) 73 mmHg 64 mmHg Bedside Blood Gas pO2 (LAB) 86 mmHg 84 mmHg Bedside Blood Gas HCO3 (LAB) 24 meq/L 24 meq/L Bedside Blood Gas Total CO2 26 mEq/l 26 mEq/l Bedside Blood Gas Base Excess (LAB) -6.0 meq/L -4.0 meq/L Bedside Blood Gas O2 Saturation 92.0 % 93.0 % Rinku Test Pass Pass Oxygen Delivery Device Ventilator Ventilator Bedside Oxygen Rate (breaths/min) 13 20 Blood Gas Minute Ventilation 6.2 7.8 Bedside FiO2 70 % 70 % Blood Gas Tidal Volume 480 400 Blood Gas PEEP 8 10 Bedside Glucose 149 mg/dl Troponin I 5.080 ng/ml Test 07/29/17 21:02 07/30/17 05:39 07/30/17 05:41 Random Vancomycin Level 23.8 mcg/ml White Blood Count 13.64 K/uL Red Blood Count 2.96 M/uL Hemoglobin 9.2 g/dL Hematocrit 29.0 % Mean Corpuscular Volume 98.0 fL Mean Corpuscular Hemoglobin 31.1 pg Mean Corpuscular Hemoglobin Concent 31.7 g/dl Platelet Count 315 K/uL Mean Platelet Volume 8.6 fL Neutrophils (%) (Auto) 84.1 % Lymphocytes (%) (Auto) 6.7 % Monocytes (%) (Auto) 8.6 % Eosinophils (%) (Auto) 0.0 % Basophils (%) (Auto) 0.1 % Neutrophils # (Auto) 11.46 K/uL Lymphocytes # (Auto) 0.92 K/uL Monocytes # (Auto) 1.17 K/uL Eosinophils # (Auto) 0.00 K/uL Basophils # (Auto) 0.02 K/uL RDW Standard Deviation 55.1 fL RDW Coefficient of Variation 15.7 % Immature Granulocyte % (Auto) 0.5 % Immature Granulocyte # (Auto) 0.07 K/uL Sodium Level 139 mmol/L Potassium Level 4.8 mmol/L Chloride Level 108 mmol/L Carbon Dioxide Level 25 mmol/L Anion Gap 6.0 mmol/L Blood Urea Nitrogen 19 mg/dl Creatinine 1.19 mg/dl Est Creatinine Clear Calc Drug Dose 46.1 ml/min Estimated GFR () 56.7 Estimated GFR (Non- 48.9 BUN/Creatinine Ratio 15.9 Random Glucose 117 mg/dl Calcium Level 8.4 mg/dl Phosphorus Level 4.2 mg/dl Magnesium Level 1.8 mg/dl Bedside Glucose 117 mg/dl Assessment & Plan Brief visit today primarily of visit with the family. Members are coming in from out of town. Plans are eventually for a terminal wean. Comfort measures continue. I answered any questions that the family members present might have and offered what support I could give.
[2017-07-30] MEDS ORDERED: MoRPHine SULF/NSS 250MG/250ML 250 ML IV PRN (14:30)
[2017-07-30] MEDS ORDERED: MoRPHine SULF/NSS INJ 1 MG/ML 250 ML BTL ONE (14:31)
[2017-07-30] MEDS ORDERED: NURSING VERBAL MED ORDER ONE (17:45)
[2017-07-30] MEDS ORDERED: SCOPOLAMINE 1.5 MG TDSY TD SCH (18:00)
--- NOTE | 2017-07-30 20:47 | Critical Care Progress Note ---
Critical Care Progress Note Date of Service Jul 30, 2017. ICU Day ICU Day Number: [address] Kevin Subjective No overnight events. 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 She presented an acute hypercarbic hypoxic respiratory failure. She has profound stress cardiomyopathy. Patient is an end-stage terminal condition without meaningful chance of recovery. I discussed treatment options with the patient's . Goals of care are comfort and terminal extubation today. We are awaiting additional family and will proceed with terminal extubation. I have personally spent 35 minutes of critical care time in the direct management of this patient. This is a life/limb threatening event. This includes time spent evaluating patient, direct bedside care, chart review, placing orders, interpretation of diagnostic studies, discussion with consultants, patient, and family members, as well as other required patient management activities. This time is exclusive of all separately billable procedures, and teaching time and separate from and in addition to any other critical care service time. Consults & Procedures Consultants: Cardiology: Raad Oncology: Jesús Data Medications: Current Inpatient Medications Medications (Trade) Dose Ordered Sig/Ankit Route Start Time Stop Time Status Last Admin Dose Admin Fentanyl Citrate (Fentanyl Inj) 100 mcg Q2H PRN IV 07/29/17 14:15 08/12/17 14:14 07/30/17 14:59 100 MCG Potassium Chloride/Sodium Chloride 1,000 ml @ 80 mls/hr [id number] IV 07/29/17 15:00 08/28/17 14:59 07/30/17 04:29 80 MLS/HR Midazolam HCl 250 ml @ 0 mls/hr Q0M PRN IV 07/29/17 14:45 08/28/17 14:44 07/30/17 09:54 20 MLS/HR Morphine Sulfate/ Dextrose 250 ml @ 0 mls/hr Q0M PRN IV 07/30/17 14:30 08/13/17 14:29 Scopolamine (Transderm-Scop Patch) 1.5 mg Q72H TD 07/30/17 18:00 08/29/17 17:59 07/30/17 18:11 1.5 MG Miscellaneous Information (Check Scopolamine Patch Placement) 1 ea QS N/A 07/31/17 00:00 08/30/17 00:00 Vital Signs: Date Time Temp Pulse Resp B/P (MAP) Pulse Ox O2 Delivery O2 Flow Rate FiO2 07/30/17 20:00 82 12 64 Nasal Cannula 6.0 07/30/17 20:00 82 12 64 07/30/17 20:00 Nasal Cannula 6.0 07/30/17 19:00 80 10 63 07/30/17 14:27 80 07/30/17 12:00 Mechanical Ventilator 70 07/30/17 12:00 90 07/30/17 11:29 80 07/30/17 10:00 96 18 79/57 (64) 97 Mechanical Ventilator 90 07/30/17 08:00 36.7 99 19 91/57 (68) 100 Mechanical Ventilator 98 07/30/17 08:00 Mechanical Ventilator 70 07/30/17 08:00 70 07/30/17 07:22 70 07/30/17 06:00 100 18 110/70 (82) 90 07/30/17 06:00 100 18 110/70 (83) 90 Mechanical Ventilator 70 07/30/17 05:15 70 07/30/17 05:00 101 20 94/71 (75) 89 07/30/17 04:00 Mechanical Ventilator 70 07/30/17 04:00 70 07/30/17 04:00 103 20 116/71 (90) 90 07/30/17 04:00 36.7 103 20 116/71 (86) 90 Mechanical Ventilator 70 07/30/17 03:00 101 20 114/71 (92) 92 07/30/17 02:06 70 07/30/17 02:00 101 19 113/78 (85) 90 07/30/17 02:00 101 19 113/78 (90) 90 Mechanical Ventilator 70 07/30/17 01:00 109 29 87 07/30/17 00:00 36.8 102 20 116/74 (88) 92 Mechanical Ventilator 70 07/30/17 00:00 36.8 102 20 116/74 (84) 92 07/30/17 00:00 102 20 116/74 (84) 92 07/29/17 23:59 Mechanical Ventilator 70 07/29/17 23:59 70 07/29/17 23:15 70 07/29/17 23:00 99 19 119/77 (96) 93 07/29/17 22:00 100 19 90/66 (71) 92 07/29/17 21:44 103 24 123/88 (102) 92 07/29/17 21:30 101 22 115/88 (99) 93 07/29/17 21:00 100 18 115/74 (77) 93 Laboratory Results: Last 24 Hours Test 07/29/17 21:02 07/30/17 05:39 07/30/17 05:41 Random Vancomycin Level 23.8 mcg/ml White Blood Count 13.64 K/uL Red Blood Count 2.96 M/uL Hemoglobin 9.2 g/dL Hematocrit 29.0 % Mean Corpuscular Volume 98.0 fL Mean Corpuscular Hemoglobin 31.1 pg Mean Corpuscular Hemoglobin Concent 31.7 g/dl Platelet Count 315 K/uL Mean Platelet Volume 8.6 fL Neutrophils (%) (Auto) 84.1 % Lymphocytes (%) (Auto) 6.7 % Monocytes (%) (Auto) 8.6 % Eosinophils (%) (Auto) 0.0 % Basophils (%) (Auto) 0.1 % Neutrophils # (Auto) 11.46 K/uL Lymphocytes # (Auto) 0.92 K/uL Monocytes # (Auto) 1.17 K/uL Eosinophils # (Auto) 0.00 K/uL Basophils # (Auto) 0.02 K/uL RDW Standard Deviation 55.1 fL RDW Coefficient of Variation 15.7 % Immature Granulocyte % (Auto) 0.5 % Immature Granulocyte # (Auto) 0.07 K/uL Sodium Level 139 mmol/L Potassium Level 4.8 mmol/L Chloride Level 108 mmol/L Carbon Dioxide Level 25 mmol/L Anion Gap 6.0 mmol/L Blood Urea Nitrogen 19 mg/dl Creatinine 1.19 mg/dl Est Creatinine Clear Calc Drug Dose 46.1 ml/min Estimated GFR () 56.7 Estimated GFR (Non- 48.9 BUN/Creatinine Ratio 15.9 Random Glucose 117 mg/dl Calcium Level 8.4 mg/dl Phosphorus Level 4.2 mg/dl Magnesium Level 1.8 mg/dl Bedside Glucose 117 mg/dl
[2017-07-30] MEDS ORDERED: ETOMIDATE 2 MG/ML 20 ML VIAL IV ONE (21:49)
[2017-07-30] MEDS ORDERED: VECURONIUM BROMIDE 10 MG VIAL IV ONE (21:49)
[2017-07-30] MEDS ORDERED: SUCCINYLCHOLINE CHLORIDE 20 MG/ML 10 ML VIAL IV ONE (21:49)
[2017-07-31] MEDS ORDERED: CHECK SCOPOLAMINE PATCH PLACEMENT SCH
--- NOTE | 2017-07-31 00:56 | Death Pronouncement Note ---
Pronouncement Note Date & Time of Jul 31, 2017. 2150 Pronouncement At time of pronouncement the patients pupils were fixed and dilated, there was no spontaneous respiratory effort, no palpable pulse, no audible heart tones, and no response to pain or voice.
[2017-07-31] MEDS ORDERED: VANCOMYCIN INJ 1,000 MG in SODIUM CHLORIDE 0.9% 250ML 250 ML IV SCH (02:00)
--- NOTE | 2017-07-31 07:18 | Discharge Summary ---
Discharge Summary Date of Service Jul 31, 2017. Discharge Summary Admission Date: Jul 29, 2017 at 10:48 Discharge Disposition: Principal Diagnosis: Acute Respiratory Failure Severe respiratory Acidosis Progressive mucinous adenocarcinoma of the lung Procedures: ECHO: n The left ventricle is borderline dilated. n There is normal left ventricular wall thickness. n There is severe global hypokinesis of the left ventricle. n Ejection Fraction = 15-20%. n No regional wall motion abnormalities noted. n Only most basal wall segments contradt wiht pattern c/w catecholamine induced cardiomyopathy. n There is trace mitral regurgitation. n There is moderate tricuspid regurgitation. n Right ventricular systolic pressure is elevated at 40-50mmHg. CTA: 1. The endotracheal tube is positioned at the level of the zia 2. Increasing bulky mediastinal and hilar lymphadenopathy 3. Interval increase in the size and number of the multiple bilateral pulmonary nodules 4. The right mainstem bronchus is obstructed by the mediastinal mass/adenopathy Consultations: Cardiology, Oncology, Critical Care, Palliative Care Pending Studies/Follow-Up: Patient Admission Information HPI (per Admitting provider): 62 year old female who presents to the ED with shortness of breath. Patient was in severe respiratory distress upon arriving to the ED and required urgent intubation. History is unobtainable from the patient. Some history is obtained from medical record review and family who is at the bedside. Patient recently has been treated twice for a URI. Most recently she was placed on Doxycycline on 07/23. Per , respiratory distress came on suddenly this morning. Patient was brought to the ED for further evaluation. She required intubation shortly after arrival. She was given IV Lasix, IV Mg+, IV Vanco, IV Levaquin, and IV Cefepime. Physical Exam (per Admitting): General Appearance: WD/WN, + pertinent finding (intubated, sedated) Head: normocephalic, atraumatic Eyes: normal inspection, EOMI, sclerae normal ENT: + pertinent finding (ET tube in place) Neck: supple, no JVD, trachea midline Respiratory/Chest: + pertinent finding (coarse breath sounds anteriorly and left lung parks posterioly; absent / diminished breath sounds on the right) Cardiovascular: no edema, normal peripheral pulses, + tachycardia (regular rhythm) Abdomen/GI: normal bowel sounds, non tender, soft, no organomegaly Extremities/Musculoskelatal: normal inspection, no calf tenderness, normal capillary refill Neurologic/Psych: + pertinent finding (sedated) Skin: warm/dry, + mottled (anterior chest wall) Hospital Course Acute Respiratory Failure Severe respiratory Acidosis Progressive mucinous adenocarcinoma of the lung CT showing obstruction of right mainstem bronchus due to mediastinal mass/ adenopathy Completely obliterated right lower lobe and encroachment of R pulmonary artery by metastatic disease Significant Cardiomyopathy On Empiric antibiotics Appreciate [facility]/Oncology Input Comfort measures only Patient after being terminally extubated JUAN Likely prerenal IVF Avoid nephrotoxic agents when able H/O Mucinous Adenocarcinoma of Lung Follows with Dr. Mccoy with [facility] oncology Depression on bupropion and escitalopram DVT Px: Heparin SQ Code Status: DNR Total time spent on discharge = This includes examination of the patient, discharge planning, medication reconciliation, and communication with other providers. Discharge Instructions Patient
[2017-07-31] MEDS ORDERED: LEVOFLOXACIN 750MG / D5W IV SCH (09:00)
[2017-07-31] MEDS ORDERED: VANCOMYCIN TROUGH ONE (13:30)
== END 2017-07-30 21:50 | disposition expired | DRG 871 ==
LOC: EDBD 09:08 → C.EDA 09:10 → C.MSICU 10:48 → EDBEDREQ 10:50 → ENRESERV 10:56 → UNDODISIN 07-31 00:30
PROVIDERS: ADMIT Internal Medicine; ATTEND Internal Medicine
PROC: 5A1945Z Respiratory Ventilation, 24-96 Consecutive Hours (ICD-10-PCS; principal; 2017-07-29)
PROC: 0BH13EZ Insertion of Endotracheal Airway into Trachea, Percutaneous Approach (ICD-10-PCS; principal; 2017-07-29)
DX: A41.9 Sepsis, unspecified organism (principal); J96.00 Acute respiratory failure, unspecified whether with hypoxia or hypercapnia; C34.31 Malignant neoplasm of lower lobe, right bronchus or lung; N17.9 Acute kidney failure, unspecified; E87.2 Acidosis; I24.8 Other forms of acute ischemic heart disease; Z51.5 Encounter for palliative care; Z66 Do not resuscitate; R79.89 Other specified abnormal findings of blood chemistry; F32.9 Major depressive disorder, single episode, unspecified; Z87.891 Personal history of nicotine dependence; Z80.3 Family history of malignant neoplasm of breast